=== PATIENT | male | born 1955 | race Caucasian/White ===

== ENCOUNTER 2016-10-21 08:23 | Day surgery (SDC) | payer OTHER ==
[2016-10-16 09:49] VITALS: BMI 31.0
[2016-10-21] MEDS: LACTATED RINGERS 1,000 ML IV SCH (09:24)
[2016-10-21] MEDS: LIDOCAINE 1% 20 ML VIAL (10MG/ML) FOR IV START INTRADERMA ONE (09:24)
[2016-10-21 09:30] VITALS: RESP 16; TEMP 98.3
[2016-10-21 09:30] LABS: Glucose,Whole Blood 185 mg/dL (75-99)
[2016-10-21] MEDS ORDERED: BUPIVACAINE (PF) 0.25% 30 ML VIAL ONE (09:34)
[2016-10-21] MEDS ORDERED: fentaNYL (PF) 50 MCG/ML 2 ML AMP ONE (09:34)
[2016-10-21] MEDS ORDERED: MIDAZOLAM 2 MG/2 ML VIAL ONE (09:34)
--- NOTE | 2016-10-21 10:21 | P.PCN ---
Date of Procedure: 10/21/16 Procedure(s) Performed: PREOPERATIVE DIAGNOSIS: 1-Cervical Spondylosis with Facet Arthropathy.without myelopathy 2-cervical degenerative disc disease POSTOPERATIVE DIAGNOSIS:1- Cervical Spondylosis Facet Arthropathy. Without myelopathy, 2-cervical degenerative disc disease PROCEDURES: Diagnostic Bilateral C3, C4 , C5, medial branch blocks, with fluoroscopic guidance ANESTHESIA: Local with 1% lidocaine 6 ml ; IV sedation with Versed 3 mg and fentanyl 100 g EBL: Minimal PROCEDURE INDICATION: The patient with neck pain secondary to cervical arthropathy unresponsive to more conservative treatments. PROCEDURE DESCRIPTION / TECHNIQUE: The patient was seen and identified in the preoperative area. Risks, benefits, complications, and alternatives were discussed with the patient, the patient agreed to proceed with the procedure and signed the consent. IV was started. Vital signs remained stable throughout the procedure. Patient was taken to the OR and time out was completed. The patient was placed in the prone position on the procedure table. A pillow was placed under the patients chest to increase the cervical interlaminar space. The cervical area was prepped and draped in the usual sterile fashion. Critical pause was taken. Vital signs were closely monitored during the procedure. Conscious sedation was used during the procedure to decrease patients anxiety. Then retry to visualize the cervical vertebral and I was able to see only C2 on C3 of Dr. Fernandez for this reason patient was turned to supine position and the neck prepped again using chlorhexidine 3 Using cross-table lateral fluoroscopy, the centroid of the trapezoid of right C3 , C4 , C5 was identified, marked, and localized with 1% lidocaine 1 ml at each level for skin and Sub Q infiltrations . Subsequently, a 22 G 3 spinal needle was advanced guided by fluoroscopy to the centroid of the trapezoid of Right C3, C4 , C5, . [place] tip position was confirmed at the centroid of the trapezoids of Right C3 , C4 , C5 with anteroposterior fluoroscopy. Subsequently, 1,5 ml of preservative-free Bupivacaine 0.75% and half ml was injected after negative aspiration for blood and CSF. [place] was then removed intact the same procedure was repeated at the left C3, C4, C5 levels. COMPLICATIONS: No acute complications. COMMENTS: The plan was to do bilateral C3/C4/C5/C6 medial branch block (4 levels ), but I couldn't visualize C6 levels , and I ended up doing only 3 levels bilaterally, no steroid used for the procedure DISPOSITION / PLANS: The patient was placed in a supine position and transferred to the recovery area in a stable condition for observation and was discharged from the recovery room after meeting discharge criteria. Home discharge instructions given to the patient by the staff. The patient was reexamined prior to discharge. The patient will schedule a follow up in the clinic in 2-4 weeks.
--- NOTE | 2016-10-21 10:25 | FL ---
FLUOROSCOPY 24 seconds of fluoroscopy time were utilized during facet injections. 3 images document the procedure .
[2016-10-21] MEDS: IV FLUID CONTINUATION 700 ML IV ONE (10:30)
[2016-10-21 10:35] VITALS: BP 128/78
[2016-10-21 11:21] VITALS: PULSE 66
== END 2016-10-21 11:22 | disposition home or self-care (01) ==
LOC: ORPAIN 08:23
PROVIDERS: ATTEND Specialist
DX: M46.82 Other specified inflammatory spondylopathies, cervical region (principal); M50.31 Other cervical disc degeneration, high cervical region; M50.321 Other cervical disc degeneration at C4-C5 level
CPT/HCPCS: 64490; 64491; 64492; J2250; J3010

== ENCOUNTER 2016-12-02 09:35 | Day surgery (SDC) | payer OTHER ==
[2016-12-02] MEDS ORDERED: LACTATED RINGERS 1,000 ML IV SCH ×2 (10:30→11:05)
[2016-12-02 10:36] VITALS: BMI 31.1
[2016-12-02 10:38] VITALS: RESP 16; TEMP 97.4
[2016-12-02] MEDS ORDERED: LIDOCAINE 1% 20 ML VIAL (10MG/ML) FOR IV START INTRADERMA ONE (10:47)
[2016-12-02 11:14] LABS: Glucose,Whole Blood 171 mg/dL (75-99)
[2016-12-02] MEDS ORDERED: BUPIVACAINE (PF) 0.5% 30 ML VIAL ONE (11:19)
[2016-12-02] MEDS ORDERED: MIDAZOLAM 2 MG/2 ML VIAL ONE (11:19)
[2016-12-02] MEDS ORDERED: fentaNYL (PF) 50 MCG/ML 2 ML AMP ONE (11:19)
--- NOTE | 2016-12-02 11:51 | P.PCN ---
Date of Procedure: 12/02/16 Preoperative Diagnosis: Cervical spondylosis without myelopathy Postoperative Diagnosis: Same as above Procedure(s) Performed: Bilateral cervical medial branch block under fluoroscopic guidance for levels see to 3, C4, and C5 Anesthesia: MAC Surgeon: Abigail Kaufman Condition: stable Disposition: PACU Description of Procedure: The patient was seen in preop holding area and the last medial branch block give him 2 weeks of pain relief that the patient Also Procedures. However he didn't get significant relief of his pain for 2 weeks. The patient was brought into the procedure room and placed in supine position. Skin was prepped with ChloraPrep and draped in a sterile manner. Lidocaine 1% was used to numb the skin up at the target points that were chosen as follows: The center of the trapezoid shaped cervical articular pillars of C3, C4, and C5 were identified and the lateral view of fluoroscopy then I used 22-gauge 3-1/2 inch Qu[place]ke spinal needles for this procedure to contact the bone at the target points mentioned above. I then injected 1 mL of Marcaine 0.5% at each target point. The right side was done first and then the left side was the same manner.. The patient received 2 mg of Versed IV and 100 g of fentanyl IV for sedation. No steroids were used for the procedure. Patient tolerated procedure well.
[2016-12-02 12:17] VITALS: BP 121/58; PULSE 62
[2016-12-02] MEDS ORDERED: IV FLUID CONTINUATION 1,000 ML IV ONE (12:24)
--- NOTE | 2016-12-02 12:27 | FL ---
EXAMINATION TYPE: FL guided pain mgmt statistic DATE OF EXAM: 12/02/2016 11:55 AM HISTORY: Flouroscopy time 13 seconds of fluoroscopy provided. IMPRESSION: 1. Fluoroscopy time.
== END 2016-12-02 12:36 | disposition home or self-care (01) ==
LOC: ORPAIN 09:35
PROVIDERS: ATTEND Anesthesiology
DX: M47.812 Spondylosis without myelopathy or radiculopathy, cervical region (principal); E11.9 Type 2 diabetes mellitus without complications; I25.10 Atherosclerotic heart disease of native coronary artery without angina pectoris
CPT/HCPCS: 64490; 64491; 64492; 99152; J2250; J3010

== ENCOUNTER → 2017-01-07 | Day surgery (SDC) | payer OTHER ==
[2017-01-06 10:33] VITALS: BMI 31.1
[~2017-01-07] MED LIST: BUPIVACAINE (PF) 0.5% 30 ML VIAL ONE; IV FLUID CONTINUATION 550 ML IV ONE; LACTATED RINGERS 1,000 ML IV SCH; LIDOCAINE 1% 20 ML VIAL (10MG/ML) FOR IV START INTRADERMA ONE; MIDAZOLAM 2 MG/2 ML VIAL ONE; TRIAMCINOLONE ACETONIDE 40 MG/ML 1 ML VIAL ONE; fentaNYL (PF) 50 MCG/ML 2 ML AMP ONE
[2017-01-07 08:43] VITALS: TEMP 97
[2017-01-07 08:46] LABS: Glucose,Whole Blood 165 mg/dL (75-99)
--- NOTE | 2017-01-07 11:00 | P.PCN ---
Date of Procedure: 01/07/17 Procedure(s) Performed: PREOPERATIVE DIAGNOSIS: Cervical spondylosis with Facet Arthropathy without myelopathy. POSTOPERATIVE DIAGNOSIS: Cervical spondylosis with Facet Arthropathy without myelopathy. PROCEDURES: Radiofrequency thermocoagulation, right C3, C4, C5, medial branch with Fluroscopy [place] ANESTHESIA: Local with 1% lidocaine 5 ml ; IV sedation with fentanyl 100 mcg and Versed.2 mg EBL: Minimal PROCEDURE INDICATION: The patient with neck pain secondary to cervical arthropathy who had more than 50% relief of her pain with previous diagnostic cervical medial branch block. PROCEDURE DESCRIPTION / TECHNIQUE: The patient was seen and identified in the preoperative area. Risks, benefits, complications, and alternatives were discussed with the patient, the patient agreed to proceed with the procedure and signed the consent. IV was started. Vital signs remained stable throughout the procedure. Patient was taken to the OR and time out was completed. The patient was placed in the prone position on the procedure table tried to visualize the cervical spine , and it was very poor view I was able to see only C2 and C3. only ,For this reason we put the patient on supine position. ,then. The cervical area was prepped and draped in the usual sterile fashion. Critical pause was taken. Vital signs were closely monitored during the procedure. Conscious sedation was used during the procedure to decrease patients anxiety. Using cross-table lateral fluoroscopy, the centroid of the trapezoid of right C3, C4, C5, were identified, marked, and localized with 1% lidocaine. Subsequently, a 20 [id number] radiofrequency cannula with a 10-mm active tip was advanced guided by fluoroscopy to the centroid of the trapezoid of right C3 , C4, C5, . Needle tip position was confirmed at the centroid of the trapezoids of C3, C4, C5,with anteroposterior fluoroscopy. Each site then underwent sensory testing at 50 Hz and 0 to 1 volt and motor testing at 2 Hz and 0 to 3 volt with local stimulation, but no radicular symptoms down the arm. Thereafter the right C3, C4, C5 sites underwent radiofrequency thermocoagulation at 80 degrees celsius for 90 seconds after injecting 0.5 ml of PF lidocaine 1%. After thermocoagulation, 1 ml of the block solution containing Kenalog 40 mg and 3 mL of preservative-free normal saline was injected at the right C3, C4, C5, levels after negative aspiration of CSF and blood and with no paresthesias. Cannulas were retracted while injecting lidocaine 1% until the needle is out. Skin was cleansed and bandages were applied. COMPLICATIONS: No acute complications. COMMENTS: DISPOSITION / PLANS: The patient was placed in a supine position and transferred to the recovery area in a stable condition for observation and was discharged from the recovery room after meeting discharge criteria. Home discharge instructions given to the patient by the staff. The patient was reexamined prior to discharge. The patient will schedule a follow up in the clinic in 2-4 weeks.
--- NOTE | 2017-01-07 11:07 | FL ---
Fluoroscopy INDICATION: Pain FINDINGS: Fluoroscopy time: 1 minute 45 seconds. Images obtained: 2. IMPRESSIONS: 1. Documentation of fluoroscopy.
[2017-01-07 11:15] VITALS: RESP 18
[2017-01-07 11:33] VITALS: BP 133/76; PULSE 70
== END ==
LOC: ORPAIN 08:26
PROVIDERS: ATTEND Specialist
DX: M47.812 Spondylosis without myelopathy or radiculopathy, cervical region (principal); M46.92 Unspecified inflammatory spondylopathy, cervical region
CPT/HCPCS: 64633; 64634 ×2; 99152; 99153 ×3; J2250; J3301; J3010

== ENCOUNTER 2017-02-24 07:24 | Day surgery (SDC) | payer OTHER ==
[2017-02-23 09:46] VITALS: BMI 31.9
[~2017-02-24 07:24] MED LIST changes: -BUPIVACAINE (PF) 0.5% 30 ML VIAL ONE; -IV FLUID CONTINUATION 550 ML IV ONE; -LIDOCAINE 1% 20 ML VIAL (10MG/ML) FOR IV START INTRADERMA ONE; -MIDAZOLAM 2 MG/2 ML VIAL ONE; -TRIAMCINOLONE ACETONIDE 40 MG/ML 1 ML VIAL ONE; -fentaNYL (PF) 50 MCG/ML 2 ML AMP ONE
[2017-02-24 07:47] VITALS: TEMP 98.2
[2017-02-24] MEDS ORDERED: LIDOCAINE 1% 20 ML VIAL (10MG/ML) FOR IV START SQ ONE (07:52)
[2017-02-24 07:53] LABS: Glucose,Whole Blood 184 mg/dL (75-99)
[2017-02-24] MEDS ORDERED: MIDAZOLAM 2 MG/2 ML VIAL ONE (07:56)
[2017-02-24] MEDS ORDERED: DEXAMETHASONE SOD PHOS (MDV) 100 MG/10 ML VIAL ONE (07:56)
[2017-02-24] MEDS ORDERED: BUPIVACAINE (PF) 0.5% 30 ML VIAL ONE (07:56)
[2017-02-24] MEDS ORDERED: fentaNYL (PF) 50 MCG/ML 2 ML AMP ONE (07:56)
--- NOTE | 2017-02-24 09:00 | P.PCN ---
Date of Procedure: 02/24/17 Preoperative Diagnosis: Postoperative Diagnosis: Procedure(s) Performed: PREOPERATIVE DIAGNOSIS: Cervical spondylosis with Facet Arthropathy without myelopathy. POSTOPERATIVE DIAGNOSIS: Cervical spondylosis with Facet Arthropathy without myelopathy. PROCEDURES: Radiofrequency thermocoagulation, left C3, C4, C5, medial branch with Fluroscopy [place] ( Three levels) ANESTHESIA: Local with 1% lidocaine 3 ml ; IV sedation with fentanyl 100 mcg and Versed. 2 mg EBL: Minimal PROCEDURE INDICATION: The patient with neck pain secondary to cervical arthropathy who had more than 50% relief of her pain with previous diagnostic cervical medial branch block. PROCEDURE DESCRIPTION / TECHNIQUE: The patient was seen and identified in the preoperative area. Risks, benefits, complications, and alternatives were discussed with the patient, the patient agreed to proceed with the procedure and signed the consent. IV was started. Vital signs remained stable throughout the procedure. Patient was taken to the OR and time out was completed. The patient was placed in the supine position on the procedure table. The cervical area was prepped and draped in the usual sterile fashion. Critical pause was taken. Vital signs were closely monitored during the procedure. Conscious sedation was used during the procedure to decrease patients anxiety. Using cross-table lateral fluoroscopy, the centroid of the trapezoid of left C3 , C4, C5, were identified, marked, and localized with 1% lidocaine. Subsequently, a 20 [id number] radiofrequency cannula with a 10-mm active tip was advanced guided by fluoroscopy to the centroid of the trapezoid of left C3 , C4, C5, . Needle tip position was confirmed at the centroid of the trapezoids of Left C3, C4, C5 with anteroposterior fluoroscopy. Each site then underwent sensory testing at 50 Hz and 0 to 1 volt and motor testing at 2 Hz and 0 to 3 volt with local stimulation, but no radicular symptoms down the arm. Thereafter the Left C3, C4, O0yezgs underwent radiofrequency thermocoagulation at 80 degrees celsius for 90 seconds after injecting 0.5 ml of PF lidocaine 1%. After thermocoagulation, 1 ml of the block solution containing Dexamethason 10 mg , and 3 mL of preservative-free normal saline was injected at the left C3, C4, C5, levels after negative aspiration of CSF and blood and with no paresthesias. Cannulas were retracted while injecting lidocaine 1% until the needle is out. Skin was cleansed and bandages were applied. COMPLICATIONS: No acute complications. COMMENTS: DISPOSITION / PLANS: The patient was placed in a supine position and transferred to the recovery area in a stable condition for observation and was discharged from the recovery room after meeting discharge criteria. Home discharge instructions given to the patient by the staff. The patient was reexamined prior to discharge. The patient will schedule a follow up in the clinic in 2-4 weeks. Implants: Indications for Procedure: Operative Findings: Description of Procedure:
--- NOTE | 2017-02-24 09:01 | FL ---
EXAMINATION TYPE: FL guided pain mgmt statistic DATE OF EXAM: 02/24/2017 HISTORY: Pain C3-[address] FOR PAIN. 27 SEC FL TIME. 2 IMAGES SCANNED
[2017-02-24] MEDS ORDERED: IV FLUID CONTINUATION 1,000 ML IV ONE (09:05)
[2017-02-24 09:08] VITALS: BP 151/93; PULSE 67; RESP 18
== END 2017-02-24 09:36 | disposition home or self-care (01) ==
LOC: ORPAIN 07:24
PROVIDERS: ATTEND Specialist
DX: M47.812 Spondylosis without myelopathy or radiculopathy, cervical region (principal); M46.92 Unspecified inflammatory spondylopathy, cervical region; E11.9 Type 2 diabetes mellitus without complications
CPT/HCPCS: 64633; 64634 ×2; 99152; 99153 ×2; J2250; J3010; J1100

== ENCOUNTER → 2017-03-30 | Outpatient (CLI) | payer OTHER ==
[2017-03-30 12:15] VITALS: BP 147/81; PULSE 68; RESP 18; TEMP 98.5
--- NOTE | 2017-03-30 12:30 | P.PN ---
Progress Note - Text Patient returns for followup for chronic neck pain with mild radiation to shoulders. Patient recently underwent bilateral cervical RFA, which has provided relief for interval since procedure. Patient continues on [place]/ Neurontin medications for pain with good relief and is now only using 1-2 [place] pills per day. Patient denies adverse drug effects from medications. Today, pt denies new-onset weakness, bowel/bladder incontinence, or any other signs or symptoms of cauda equina syndrome. There are no signs of acute intoxication, and no indications of medication diversion or overuse. In addition to above, 13-point review of systems is also negative for chest pain , shortness of breath, changes in vision, changes in hearing, new onset weakness , abdominal pain, diarrhea, extreme fatigue, malaise, fever, skin changes, homicidal or suicidal ideation, or bowel or bladder incontinence. Vital Signs: Reviewed in EMR Gen: WDWN, AAOx3, NAD HEENT: NCAT, EOMI, hearing grossly normal Pulm: resp unlabored Abd: soft, NT, ND Neck: supple, trachea midline ROM in flexion cervical spine: reduced ROM in extension cervical spine: reduced Cervical paravertebral tenderness: + Cervical Facet tenderness: + bilateral, mild Spurling's: neg Upper extremity: decreased body coverer strength secondary to pain Neuro: CN II-XII grossly intact, muscle strength lower extremities PRESERVED Imaging: Reviewed in EMR Assessment: 1. cervical spondylosis without myelopathy 2. chronic pain syndrome 3. myofascial pain Plan: 1. Explanation: Opioid and psychological risk scores were reviewed. Diagnoses , prognoses, and multiple treatment options including but not limited to physical therapy, interventional therapies, adjuvant medical therapies, narcotic medication therapies, and surgery were discussed with the patient and all questions were answered to the patient's satisfaction. 2. Opioid agreement: Patient has previously signed narcotic agreement, and was orally counseled to not overuse, abuse, divert, or cell medications, and to take them as prescribed by only 1 healthcare provider. The patient was also counseled to store opioid medications in a safe and preferably locked location. Patient was also counseled against driving or operating heavy equipment while using narcotic medications and also to not use alcohol or any illicit or recreational drugs. The patient verbalized understanding that lack of compliance with any of the above and likely result in failure to renew narcotic prescriptions, possible discharge from the clinic, and possible legal ramifications thereafter if indicated. 3. Counseling: The patient was counseled extensively on SMOKING CESSATION, BODY MASS INDEX, EXERCISE. Specifically, the patient was instructed regarding the importance of smoking cessation, weight control, and exercise in the context of both chronic pain and overall health. 4. Procedures: none for now 5. Consultations: None 6. Investigations: None 7. Medications: decrease [place] to #45 per month (one script given for #90, which is supply for two months), continue Neurontin 400 mg #90 with two refills , start Zanaflex 4 mg #90 with two refills 8. Disposition: f/u for re-eval in 8 weeks PQRS measures: 1-Patient's medications are documented in the chart. 2-Tobacco use is negative 3-Patient has not had a pneumococcal vaccine. 4-Advanced care planning discussed, patient unable to give. 5-Opioid contract signed with the patient. 6-Pain positive, follow-up visit or procedure scheduled 7-Patient's blood pressure measured and documented, and patient will follow up with the primary care due to hypertension. 8-Patient's weight was measured, and body mass index ABOVE the normal limits, and counseling was done. Patient instructed to follow up with PCP. 9-Patient WAS NOT identified as an unhealthy alcohol user.
== END | disposition home or self-care (01) ==
LOC: PNWHC3 11:51
PROVIDERS: ATTEND Anesthesiology
DX: M47.812 Spondylosis without myelopathy or radiculopathy, cervical region (principal); G89.4 Chronic pain syndrome; M79.1 Myalgia; Z79.891 Long term (current) use of opiate analgesic
CPT/HCPCS: G0480; G0463; 80307; 80356; 80364; 99211

== ENCOUNTER → 2017-05-25 | Outpatient (CLI) | payer OTHER ==
[2017-05-25 12:45] VITALS: BP 158/73; PULSE 64; RESP 16
--- NOTE | 2017-05-25 13:05 | P.PN ---
Progress Note - Text This is a 62-year-old male with cervical spondylosis without myelopathy. The patient had cervical medial branch RFA recently which resulted in significant pain relief. The patient is not taking his [place] as frequently as he used to. He is alert oriented 3 in no apparent distress. Today I will reduce the number of Reading from 3 to2 pills a day if needed for his pain and we'll continue with his Neurontin and Zanaflex. The patient will be seen 2 months from now for reevaluation.
== END ==
LOC: PNWHC3 11:58
PROVIDERS: ATTEND Anesthesiology
DX: M47.812 Spondylosis without myelopathy or radiculopathy, cervical region (principal); Z79.899 Other long term (current) drug therapy
CPT/HCPCS: 99211

== ENCOUNTER → 2017-09-07 | Outpatient (CLI) | payer OTHER ==
[2017-09-07 13:12] VITALS: BP 170/68; PULSE 94; RESP 16
--- NOTE | 2017-09-07 13:28 | P.PN ---
Progress Note - Text Progress Note Date: 09/07/17 A 62-year-old male with lower back pain due to lumbar spondylosis pain with cervical spondylosis status post branch block that has helped his pain significantly. The patient takes 2 pills of [place] 7.5 mg as needed every day plus Zanaflex and Neurontin. He denies any side effects to these medications. He does not show any drug-seeking behavior. Physical Examinations : 1-Constitutiona : Cooperative , not in acute distress . 2-HEENT : nech ; supple , no Lymphadenopathy , normal thyroid size . eyes : no ptosis , no icterus, no photophobia . ENT : normal of hearing , normal oropharynx , no Thrush . 3- Respiratory : Chest clear to auscultations Bilaterally , no wheezing , no Rhonchi . 4- Cardiovascular : regular rate and rhythem , S1 , S2 , no S3 , no S4. 5- Gastrointestinal : abdomen soft no tenderness , bowel sounds positive all four quadrents , no organomegally . 6- Genitourinary : Defferred . 7- neurologic : Cranial nerve II to XII intact , no focal neurological deffecit . 8-psychatric : alert , oriented X 3 , appropriate affect , intact judgment and insight . 9-Lymphatic : no Lymphadenopathy . 10- musculoskeltal : PQRS measures: 1-Patient's medications are documented in the chart. 2-Tobacco use is negative, counseling given 3-Patient has had a pneumococcal vaccine. 4-Advanced care planning discussed, patient unable to give 5-Opioid contract signed with the patient. 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 8-Patient's weight was measured, and body mass index ABOVE the normal limits, and counseling was done. Patient instructed to follow up with PCP. 9-Patient WAS NOT identified as an unhealthy alcohol user. Plan: The patient is doing well point. I'll prescribe him [place] 7.5 mg twice a day as needed for his pain with 1 refill also Neurontin and Zanaflex. We will see the patient back 2 months from now. 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
== END ==
LOC: PNWHC3 12:52
PROVIDERS: ATTEND Anesthesiology
DX: M47.816 Spondylosis without myelopathy or radiculopathy, lumbar region (principal); M47.812 Spondylosis without myelopathy or radiculopathy, cervical region; Z79.899 Other long term (current) drug therapy
CPT/HCPCS: 99211

== ENCOUNTER → 2017-11-02 | Outpatient (CLI) | payer OTHER ==
[2017-11-02 11:27] VITALS: BP 150/97; PULSE 82; RESP 18; TEMP 97.8
--- NOTE | 2017-11-02 11:39 | P.PN ---
Progress Note - Text Progress Note Date: 11/02/17 Patient returns for followup for chronic neck pain with mild radiation to shoulders. Patient previously underwent bilateral cervical RFA last summer, which has provided relief for interval since procedure. Patient continues on [place]/Neurontin/Zanaflex medications for pain with good relief and is now using 1-2 [place] pills per day typically. Patient denies adverse drug effects from medications. Today, pt denies new-onset weakness, bowel/bladder incontinence, or any other signs or symptoms of cauda equina syndrome. There are no signs of acute intoxication, and no indications of medication diversion or overuse. In addition to above, 13-point review of systems is also negative for chest pain , shortness of breath, changes in vision, changes in hearing, new onset weakness , abdominal pain, diarrhea, extreme fatigue, malaise, fever, skin changes, homicidal or suicidal ideation, or bowel or bladder incontinence. Vital Signs: Reviewed in EMR Gen: WDWN, AAOx3, NAD HEENT: NCAT, EOMI, hearing grossly normal Pulm: resp unlabored Abd: soft, NT, ND Neck: supple, trachea midline ROM in flexion cervical spine: reduced ROM in extension cervical spine: reduced Cervical paravertebral tenderness: + Cervical facet tenderness: + bilateral, R > L Spurling's: neg Upper extremity: decreased ic designer custom strength secondary to pain Neuro: CN II-XII grossly intact, muscle strength lower extremities PRESERVED Imaging: Reviewed in EMR Assessment: 1. cervical spondylosis without myelopathy 2. chronic pain syndrome 3. myofascial pain Plan: 1. Explanation: Opioid and psychological risk scores were reviewed. Diagnoses , prognoses, and multiple treatment options including but not limited to physical therapy, interventional therapies, adjuvant medical therapies, narcotic medication therapies, and surgery were discussed with the patient and all questions were answered to the patient's satisfaction. 2. Opioid agreement: Patient has previously signed narcotic agreement, and was orally counseled to not overuse, abuse, divert, or cell medications, and to take them as prescribed by only 1 healthcare provider. The patient was also counseled to store opioid medications in a safe and preferably locked location. Patient was also counseled against driving or operating heavy equipment while using narcotic medications and also to not use alcohol or any illicit or recreational drugs. The patient verbalized understanding that lack of compliance with any of the above and likely result in failure to renew narcotic prescriptions, possible discharge from the clinic, and possible legal ramifications thereafter if indicated. 3. Counseling: The patient was counseled extensively on BODY MASS INDEX, EXERCISE. Specifically, the patient was instructed regarding the importance of weight control, and exercise in the context of both chronic pain and overall health. 4. Procedures: none for now 5. Consultations: None 6. Investigations: None 7. Medications: Decrease [place] 7.5/325 to #45 per month with one refill, continue Neurontin 400 mg #90 with two refills, continue Zanaflex 4 mg #90 with two refills 8. Disposition: f/u for re-eval in 8 weeks; patient does not want to repeat cervical RFA at this time as his pain does not occur every day and he is still able to work. PQRS measures: 1-Patient's medications are documented in the chart. 2-Tobacco use is negative 3-Patient has not had a pneumococcal vaccine. 4-Advanced care planning discussed, patient unable to give. 5-Opioid contract signed with the patient. 6-Pain positive, follow-up visit or procedure scheduled 7-Patient's blood pressure measured and documented, and patient will follow up with the primary care due to hypertension. 8-Patient's weight was measured, and body mass index ABOVE the normal limits, and counseling was done. Patient instructed to follow up with PCP. 9-Patient WAS NOT identified as an unhealthy alcohol user.
== END | disposition home or self-care (01) ==
LOC: PNWHC3 10:58
PROVIDERS: ATTEND Anesthesiology
DX: G89.4 Chronic pain syndrome (principal); M47.812 Spondylosis without myelopathy or radiculopathy, cervical region; M79.1 Myalgia; Z79.891 Long term (current) use of opiate analgesic; Z79.899 Other long term (current) drug therapy
CPT/HCPCS: 99211

== ENCOUNTER → 2017-12-28 | Outpatient (CLI) | payer OTHER ==
[2017-12-28 12:45] VITALS: BP 157/88; PULSE 88; RESP 22
--- NOTE | 2017-12-28 13:09 | P.PN ---
Progress Note - Text Progress Note Date: 12/28/17 Patient returns for followup for chronic neck pain with mild radiation to shoulders. Patient previously underwent bilateral cervical RFA last summer, which has provided relief for interval since procedure but right sided neck pain has begun to return. Patient continues on Almond/Neurontin/Zanaflex medications for pain with good relief and is now using 1-2 Almond pills per day typically. Patient denies adverse drug effects from medications. Today, pt denies new-onset weakness, bowel/bladder incontinence, or any other signs or symptoms of cauda equina syndrome. There are no signs of acute intoxication, and no indications of medication diversion or overuse. In addition to above, 13-point review of systems is also negative for chest pain , shortness of breath, changes in vision, changes in hearing, new onset weakness , abdominal pain, diarrhea, extreme fatigue, malaise, fever, skin changes, homicidal or suicidal ideation, or bowel or bladder incontinence. 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 cervical spondylosis without myelopathy 2. chronic pain syndrome 3. myofascial pain Plan: 1. Explanation: Opioid and psychological risk scores were reviewed. Diagnoses , prognoses, and multiple treatment options including but not limited to physical therapy, interventional therapies, adjuvant medical therapies, narcotic medication therapies, and surgery were discussed with the patient and all questions were answered to the patient's satisfaction. 2. Opioid agreement: Patient has previously signed narcotic agreement, and was orally counseled to not overuse, abuse, divert, or cell medications, and to take them as prescribed by only 1 healthcare provider. The patient was also counseled to store opioid medications in a safe and preferably locked location. Patient was also counseled against driving or operating heavy equipment while using narcotic medications and also to not use alcohol or any illicit or recreational drugs. The patient verbalized understanding that lack of compliance with any of the above and likely result in failure to renew narcotic prescriptions, possible discharge from the clinic, and possible legal ramifications thereafter if indicated. 3. Counseling: The patient was counseled extensively on BODY MASS INDEX, EXERCISE. Specifically, the patient was instructed regarding the importance of weight control, and exercise in the context of both chronic pain and overall health. 4. Procedures: R cervical RFA, then L cervical RFA 5. Consultations: None 6. Investigations: None 7. Medications: Almond 7.5/325 #45 per month with one refill, continue Neurontin 400 mg #90 with two refills, continue Zanaflex 4 mg #90 with two refills 8. Disposition: f/u for procedure as scheduled PQRS measures: 1-Patient's medications are documented in the chart. 2-Tobacco use is negative 3-Patient has not had a pneumococcal vaccine. 4-Advanced care planning discussed, patient unable to give. 5-Opioid contract signed with the patient. 6-Pain positive, follow-up visit or procedure scheduled 7-Patient's blood pressure measured and documented, and patient will follow up with the primary care due to hypertension. 8-Patient's weight was measured, and body mass index ABOVE the normal limits, and counseling was done. Patient instructed to follow up with PCP. 9-Patient WAS NOT identified as an unhealthy alcohol user.
== END ==
LOC: PNWHC3 12:14
PROVIDERS: ATTEND Anesthesiology
DX: G89.4 Chronic pain syndrome (principal); M47.812 Spondylosis without myelopathy or radiculopathy, cervical region; M79.1 Myalgia; Z79.891 Long term (current) use of opiate analgesic; Z79.899 Other long term (current) drug therapy
CPT/HCPCS: 80307; 80356; 99211

== ENCOUNTER 2018-02-22 08:00 | Day surgery (SDC) | payer OTHER ==
[2018-02-21 11:21] VITALS: BMI 30.4
[2018-02-22] MEDS ORDERED: LACTATED RINGERS 1,000 ML IV SCH (08:30)
[2018-02-22 09:09] VITALS: RESP 18; TEMP 98.2
[2018-02-22 09:15] LABS: Glucose,Whole Blood 200 mg/dL (75-99)
[2018-02-22] MEDS ORDERED: IV FLUID CONTINUATION 1,000 ML IV ONE (10:17)
--- NOTE | 2018-02-22 10:34 | P.PCN ---
Date of Procedure: 02/22/18 Surgeon: Eliazar Harris Pathology: none sent Condition: stable Disposition: PACU Description of Procedure: PREOPERATIVE DIAGNOSIS: Cervical spondylosis without myelopathy and facet arthropathy. POSTOPERATIVE DIAGNOSIS: Cervical spondylosis without myelopathy and facet arthropathy. PROCEDURES: Radiofrequency thermocoagulation, C3-C4, C4-C5, C5-C6 medial branch , with fluoroscopic guidance, right side. ANESTHESIA: Local with 1% lidocaine; conscious sedation EBL: Minimal PROCEDURE INDICATION: The patient with neck pain secondary to cervical arthropathy who had more than 50% relief of pain with previous diagnostic cervical medial branch blocks and cervical RFA. No use of blood thinners. PROCEDURE DESCRIPTION / TECHNIQUE: The patient was seen and identified in the preoperative area. Risks, benefits, complications, and alternatives were discussed with the patient (with risks including but not limited to bleeding, infection, nerve damage, incomplete pain relief, and allergic reactions to medications), the patient agreed to proceed with the procedure and signed the informed consent after all questions were answered. IV was started. Vital signs remained stable throughout the procedure. Patient was taken to the OR and time out was completed to verify proper patient , procedure, laterality of procedure, and allergies. The patient was placed in the prone position on the procedure table. A pillow was placed under the patient s chest to increase the cervical interlaminar space. The cervical area was prepped and draped in the usual sterile fashion. Critical pause was taken. Vital signs were closely monitored during the procedure. Conscious sedation was used during the procedure to decrease patients anxiety. Using cross-table lateral fluoroscopy, the centroid of the trapezoid of C3, C4, C5, C6, and C7 were identified, marked, and localized with 1% lidocaine. Subsequently, a 21 gauge 100-mm radiofrequency cannula with a 5-mm active tip was advanced guided by fluoroscopy to the centroid of the trapezoids of C3, C4, and C5. Needle tip position was confirmed at the centroid of the trapezoids of C3, C4, and C5 with anteroposterior fluoroscopy. Each site then underwent sensory testing at 50 Hz and 0 to 1 volt and motor testing at 2 Hz and 0 to 3 volt with local stimulation, but no radicular symptoms down the arm. Thereafter C3, C4, and C5 sites underwent radiofrequency thermocoagulation at 80 degrees celsius for 90 seconds after injecting 0.5 ml of PF lidocaine 1%. After thermocoagulation, 1 ml of the block solution containing NO STEROID (blood sugar 200 preop) and 2 ml lidocaine 1% PF was injected at the C3, C4, and C5 levels after negative aspiration of CSF and blood and with no paresthesias. Cannulas were retracted while injecting lidocaine 1% until the needle is out. Skin was cleansed and bandages were applied. COMPLICATIONS: No acute complications. COMMENTS: DISPOSITION / PLANS: The patient was placed in a supine position and transferred to the recovery area in a stable condition for observation and was discharged from the recovery room after meeting discharge criteria. Home discharge instructions given to the patient by the staff. The patient was reexamined prior to discharge. The patient will schedule a follow up in the clinic in 2-4 weeks as bilateral RFA completed. MAPS reviewed and appropriate; [place] 7.5/325 #45 script given to patient.
--- NOTE | 2018-02-22 10:46 | FL ---
Fluoroscopy HISTORY: Pain 20 seconds fluoroscopy time supplied to the referring clinician. 3 intraoperative C-arm images docum ent the procedure. See dictated report from anesthesia.
[2018-02-22 10:47] VITALS: BP 189/99; PULSE 74
== END 2018-02-22 11:06 | disposition home or self-care (01) ==
LOC: ORPAIN 08:00
PROVIDERS: ATTEND Anesthesiology
DX: M47.812 Spondylosis without myelopathy or radiculopathy, cervical region (principal); E11.9 Type 2 diabetes mellitus without complications; I10 Essential (primary) hypertension; E78.5 Hyperlipidemia, unspecified
CPT/HCPCS: 64633; 64634 ×2; J2250; J3010; 99152

== ENCOUNTER 2018-03-10 07:24 | Day surgery (SDC) | payer OTHER ==
[2018-03-10 08:40] VITALS: RESP 16; TEMP 97.9
[2018-03-10] MEDS ORDERED: LACTATED RINGERS 1,000 ML IV ONE (08:53)
[2018-03-10] MEDS ORDERED: LIDOCAINE 1% 20 ML VIAL (10MG/ML) FOR IV START INTRADERMA ONE (08:54)
[2018-03-10 08:58] LABS: Glucose,Whole Blood 203 mg/dL (75-99)
--- NOTE | 2018-03-10 09:49 | P.PCN ---
Date of Procedure: 03/10/18 Procedure(s) Performed: PREOPERATIVE DIAGNOSIS: Cervical spondylosis with Facet Arthropathy without myelopathy. POSTOPERATIVE DIAGNOSIS: Cervical spondylosis with Facet Arthropathy without myelopathy. PROCEDURES: Radiofrequency thermocoagulation Left C3-4 , C4-5 , C5-6 medial branch with Fluroscopy Guidence ( 3 Leveles ) ANESTHESIA: Local with 1% lidocaine 4 ml , moderate sedation with fentanyl 100 micrograms and Versed 2 mg EBL: Minimal PROCEDURE INDICATION: The patient with neck pain secondary to cervical arthropathy who had more than 50% relief of her pain with previous diagnostic cervical medial branch block. PROCEDURE DESCRIPTION / TECHNIQUE: The patient was seen and identified in the preoperative area. Risks, benefits, complications, and alternatives were discussed with the patient, the patient agreed to proceed with the procedure and signed the consent. IV was started. Vital signs remained stable throughout the procedure. Patient was taken to the OR and time out was completed. The patient was placed in the prone position on the procedure table. A pillow was placed under the patients chest to increase the cervical interlaminar space. The cervical area was prepped and draped in the usual sterile fashion. Critical pause was taken. Vital signs were closely monitored during the procedure. Conscious sedation was used during the procedure to decrease patients anxiety. Using cross-table lateral fluoroscopy, the centroid of the trapezoid of the left C3, C4, C5, were identified, marked, and localized with 1% lidocaine. Subsequently, a 20 [id number] radiofrequency cannula with a 10-mm active tip was advanced guided by fluoroscopy to the centroid of the trapezoid of left C3, C4, C5. Needle tip position was confirmed at the centroid of the trapezoids of the left C3, C4, C5 with anteroposterior fluoroscopy. Each site then underwent sensory testing at 50 Hz and 0 to 1 volt and motor testing at 2 Hz and 0 to 3 volt with local stimulation, but no radicular symptoms down the arm. Thereafter the left C3, C4,C5 sites underwent radiofrequency thermocoagulation at 80 degrees celsius for 90 seconds after injecting 0.5 ml of PF lidocaine 1%. After thermocoagulation, 1 ml of the block solution containing Kenalog 40 mg and 3 mL of preservative-free normal saline was injected at the C3, C4, C5, levels after negative aspiration of CSF and blood and with no paresthesias. Cannulas were retracted while injecting lidocaine 1% until the needle is out. Skin was cleansed and bandages were applied. COMPLICATIONS: No acute complications. DISPOSITION / PLANS: The patient was placed in a supine position and transferred to the recovery area in a stable condition for observation and was discharged from the recovery room after meeting discharge criteria. Home discharge instructions given to the patient by the staff. The patient was reexamined prior to discharge. The patient will schedule a follow up in the clinic in 2-4 weeks.
[2018-03-10] MEDS ORDERED: IV FLUID CONTINUATION 1,000 ML IV ONE (09:53)
--- NOTE | 2018-03-10 09:55 | FL ---
EXAMINATION TYPE: FL guided pain mgmt statistic DATE OF EXAM: 03/10/2018 HISTORY: Flouroscopy time 19 seconds of fluoroscopy provided. IMPRESSION: 1. Fluoroscopy time.
[2018-03-10 10:05] LABS: Glucose,Whole Blood 203 mg/dL (75-99)
[2018-03-10 10:11] VITALS: BP 173/91; PULSE 74
[2018-03-10] MEDS ORDERED: LACTATED RINGERS 1,000 ML IV SCH (10:34)
== END 2018-03-10 10:34 | disposition home or self-care (01) ==
LOC: ORPAIN 07:24
PROVIDERS: ATTEND Specialist
DX: M47.812 Spondylosis without myelopathy or radiculopathy, cervical region (principal)
CPT/HCPCS: 64633; 64634 ×2; J2250; J3301; J3010; 99152; 99153

== ENCOUNTER → 2018-04-04 | Outpatient (CLI) | payer OTHER ==
[2018-04-04 11:38] VITALS: BP 167/77; PULSE 71; RESP 16
--- NOTE | 2018-04-04 11:51 | P.PN ---
Progress Note - Text Progress Note Date: 04/04/18 A 62-year-old male with lower back pain due to lumbar spondylosis pain with cervical spondylosis status post branch block that has helped his pain significantly. The patient takes 2 pills of [place] 7.5 mg as needed every day plus Zanaflex and Neurontin. He denies any side effects to these medications. He does not show any drug-seeking behavior. Physical Examinations : 1-Constitutiona : Cooperative , not in acute distress . 2-HEENT : nech ; supple , no Lymphadenopathy , normal thyroid size . eyes : no ptosis , no icterus, no photophobia . ENT : normal of hearing , normal oropharynx , no Thrush . 3- Respiratory : Chest clear to auscultations Bilaterally , no wheezing , no Rhonchi . 4- Cardiovascular : regular rate and rhythem , S1 , S2 , no S3 , no S4. 5- Gastrointestinal : abdomen soft no tenderness , bowel sounds positive all four quadrents , no organomegally . 6- Genitourinary : Defferred . 7- neurologic : Cranial nerve II to XII intact , no focal neurological deffecit . 8-psychatric : alert , oriented X 3 , appropriate affect , intact judgment and insight . 9-Lymphatic : no Lymphadenopathy . 10- musculoskeltal : PQRS measures: 1-Patient's medications are documented in the chart. 2-Tobacco use is negative, counseling given 3-Patient has had a pneumococcal vaccine. 4-Advanced care planning discussed, patient unable to give 5-Opioid contract signed with the patient. 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 8-Patient's weight was measured, and body mass index ABOVE the normal limits, and counseling was done. Patient instructed to follow up with PCP. 9-Patient WAS NOT identified as an unhealthy alcohol user. Plan: The patient is doing well point. I'll prescribe him [place] 7.5 mg twice a day as needed for his pain with 1 refill also Neurontin and Zanaflex. We will see the patient back 2 months from now.
== END | disposition home or self-care (01) ==
LOC: PNWHC3 11:08
PROVIDERS: ATTEND Anesthesiology
DX: M54.5 Low back pain (principal); M47.816 Spondylosis without myelopathy or radiculopathy, lumbar region; M47.812 Spondylosis without myelopathy or radiculopathy, cervical region; Z98.890 Other specified postprocedural states; Z79.891 Long term (current) use of opiate analgesic; Z79.899 Other long term (current) drug therapy
CPT/HCPCS: 99211

== ENCOUNTER → 2018-05-30 | Outpatient (CLI) | payer OTHER ==
[2018-05-30 12:09] VITALS: BP 194/92; PULSE 75; RESP 18
--- NOTE | 2018-05-30 12:48 | P.PN ---
Subjective Progress Note Date: 05/30/18 Principal diagnosis: This is a 63-year-old gentleman with history of bilateral shoulder pain due to osteoarthritis and myofascial pain. 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 His pain has been well-controlled with a combination of interventional pain procedures and opioids. He uses [place] 7.5 mg twice a day as needed for his pain. Today, pt denies new-onset weakness, bowel/bladder incontinence, or any other signs or symptoms of cauda equina syndrome. There are no signs of acute intoxication, and no indications of medication diversion or overuse. In addition to above, 13-point review of systems is also negative for chest pain , shortness of breath, changes in vision, changes in hearing, new onset weakness , abdominal pain, diarrhea, extreme fatigue, malaise, fever, skin changes, homicidal or suicidal ideation, or bowel or bladder incontinence. Vital Signs: Reviewed in EMR Gen: AAOx3, NAD HEENT: PERRLA,hearing grossly normal Pulm: resp unlabored,CTA Heart:S1,S2, No Mur Neck: supple, trachea midline Positive tenderness in the cervical paravertebral musculature and also around the shoulder joints posteriorly. He has normal range of motion of the shoulder joints and of the cervical spine with more pain with extension of the neck. Neuro exam of the upper extremities showed normal and symmetrical muscle strength and normal and symmetrical deep tendon reflexes Neuro: CN II-XII grossly intact, Imaging: Reviewed in EMR/chart Assessment: Myofascial pain Bilateral shoulder pain Plan: 1. Explanation: Opioid and psychological risk scores were reviewed. Diagnoses , prognoses, and multiple treatment options including but not limited to physical therapy, interventional therapies, adjuvant medical therapies, narcotic medication therapies, and surgery were discussed with the patient and all questions were answered to the patient's satisfaction. 2. Opioid agreement: Signed with the patient and the patient is warned not to use opioids while driving or before driving and not to combine opioids with benzodiazepines or alcohol. 3. Counseling: The patient was counseled extensively on SMOKING CESSATION, BODY MASS INDEX, EXERCISE. Specifically, the patient was instructed regarding the importance of smoking cessation, obesity, and exercise in the context of both chronic pain and overall health. 4. Procedures: None at this point 5. Consultations: None 6. Investigations: None 7. Medications: Continue [place] 7.5 mg twice a day, Neurontin 1200 mg and Zanaflex. 8. Disposition: Return to clinic in 8 weeks 9. Maps were reviewed and were appropriate. Objective - Vital Signs Vital signs: Vital Signs Temp Pulse 75 05/30/18 12:05 Resp 18 05/30/18 12:05 BP 194/92 05/30/18 12:05 Pulse Ox 96 05/30/18 12:05 Intake & Output 05/29/18 05/30/18 05/30/18 18:59 06:59 18:59 Weight 88.451 kg
== END | disposition home or self-care (01) ==
LOC: PNWHC3 11:35
PROVIDERS: ATTEND Anesthesiology
DX: M25.511 Pain in right shoulder (principal); M79.1 Myalgia; Z79.891 Long term (current) use of opiate analgesic; Z79.899 Other long term (current) drug therapy
CPT/HCPCS: 99211

== ENCOUNTER → 2018-07-25 | Outpatient (CLI) | payer OTHER ==
[2018-07-25 12:51] VITALS: BP 179/85; PULSE 76; RESP 16
--- NOTE | 2018-07-25 13:49 | P.PN ---
Subjective Progress Note Date: 07/25/18 Principal diagnosis: Cervical spondylosis Patric presents today for follow-up. He reports is doing well since radiofrequency ablation. He continues to have some pain over the left side of his neck into his left shoulder reports a significantly better since his radiofrequency ablation. He reports that he has pain with flexion and extension of his neck as well as side bending. He continues to work at this time. He continues to use Neurontin as well as Zanaflex with [place] as needed. He denies any side effects from medications. His VAS in today's visit is 5 out of 10 Objective - Vital Signs Vital signs: Vital Signs Temp Pulse 76 07/25/18 12:44 Resp 16 07/25/18 12:44 BP 179/85 07/25/18 12:44 Pulse Ox 97 07/25/18 12:44 Intake & Output 07/24/18 07/25/18 07/25/18 18:59 06:59 18:59 Weight 88.451 kg - Exam PHYSICAL EXAM: Constitutional: Awake and alert no distress Cardiovascular exam: Regular rate, no lower extremity edema, palpable pulses bilaterally Respiratory exam: No audible wheezing, no accessory muscle usage Abdominal exam: Soft nontender Muscular skeletal exam: - Cervical spine: Nontender to palpation bilaterally. Range of motion is limited with flexion and extension. Spurling is negative bilateral. Facet loading is positive bilaterally. Patient is missing bilateral thumbs - Lumbar spine: Preserved lumbar lordosis. No changes in skin. Nontender palpation bilateral. Patient has full range of motion in flexion and extension as well as lateral sidebending. Straight leg raise is negative. Facet loading is negative. Nontender over the SI joints. JUNIOR Negative, Gaenselons negative , SI Joint compression negative. Neuro exam: Normal sensation bilateral upper and lower extremities. Deep tendon reflexes are 2+ bilaterally. Szymanski's is negative Psychiatric exam: Cooperative, good insight Assessment and Plan Assessment: Lumbar spondylosis without myelopathy Opioid dependence Plan: I will refill the patient's medications for 2 months time. I refill his [place] as well as Zanaflex and Neurontin. Patient is maps was checked his urine drug screen has been evaluated and has been determined to be normal. We'll follow up with the patient 2 months time that time we'll determine if his neck pain is returned and will need a repeat radiofrequency ablation in the future Time with Patient: Less than 30
== END | disposition home or self-care (01) ==
LOC: PNWHC3 12:31
PROVIDERS: ATTEND Anesthesiology
DX: M47.816 Spondylosis without myelopathy or radiculopathy, lumbar region (principal); F11.20 Opioid dependence, uncomplicated; Z79.899 Other long term (current) drug therapy
CPT/HCPCS: 99211

== ENCOUNTER → 2018-09-21 | Outpatient (CLI) | payer OTHER ==
[2018-09-21 13:21] VITALS: RESP 16
[2018-09-21 13:23] VITALS: BP 168/89; PULSE 72
--- NOTE | 2018-09-21 13:44 | P.PN ---
Subjective Progress Note Date: 09/21/18 This is a 63-year-old gentleman with multiple painful areas including neck, left shoulder, lower back pain with radiation to the left lower extremity with occasional numbness and tingling. The patient had RFA on the medial portion of the cervical spine which didn't help his pain. His lower back pain has been getting worse lately with radiation to the left lower extremity to the mid calf area with occasional numbness and tingling in the left thigh. The patient denies any weakness in the lower extremities or any bowel or bladder dysfunction. He also denies any weight loss or any nocturnal pain. He uses [place] 7.5 mg twice a day as needed. Today, pt denies new-onset weakness, bowel/bladder incontinence, or any other signs or symptoms of cauda equina syndrome. There are no signs of acute intoxication, and no indications of medication diversion or overuse. In addition to above, 13-point review of systems is also negative for chest pain , shortness of breath, changes in vision, changes in hearing, new onset weakness , abdominal pain, diarrhea, extreme fatigue, malaise, fever, skin changes, homicidal or suicidal ideation, or bowel or bladder incontinence. Vital Signs: Reviewed in EMR Gen: AAOx3, NAD HEENT: PERRLA,hearing grossly normal Pulm: resp unlabored,CTA Heart:S1,S2, No Mur Neck: supple, trachea midline Neuro exam of the lower extremities: Within normal limits Straight leg raising test: Negative bilaterally Tenderness in the paravertebral musculature: Mildly positive on the lumbar paravertebral area bilaterally Neuro: CN II-XII grossly intact, Imaging: Reviewed in EMR/chart Assessment: Cervical spondylosis without myelopathy Left shoulder also arthritis Lumbar spondylosis and radiculopathy Left lumbar radiculopathy Plan: 1. Explanation: Opioid and psychological risk scores were reviewed. Diagnoses , prognoses, and multiple treatment options including but not limited to physical therapy, interventional therapies, adjuvant medical therapies, narcotic medication therapies, and surgery were discussed with the patient and all questions were answered to the patient's satisfaction. 2. Opioid agreement: Signed with the patient and the patient is warned not to use opioids while driving or before driving and not to combine opioids with benzodiazepines or alcohol. 3. Counseling: The patient was counseled extensively on SMOKING CESSATION, BODY MASS INDEX, EXERCISE. Specifically, the patient was instructed regarding the importance of smoking cessation, obesity, and exercise in the context of both chronic pain and overall health. 4. Procedures: None at this point 5. Consultations: None 6. Investigations: MRI of the lumbar spine without contrast 7. Medications: Continue with [place], Neurontin and Zanaflex 8. Disposition: Return to clinic in 4 weeks 9. Maps were reviewed and were appropriate. PQRS measures: 1-Patient's medications are documented in the chart. 2-Tobacco use is negative, counseling given 3-Patient has had a pneumococcal vaccine. 4-Advanced care planning discussed, patient unable to give 5-Opioid contract signed with the patient. 6-Pain positive, follow-up visit or procedure scheduled 7-Patient's blood pressure measured and documented in the hypertensive range and the patient is going to follow up with his primary care physician. 8-Patient's weight was measured, and body mass index ABOVE the normal limits, and counseling was done. Patient instructed to follow up with PCP. 9-Patient WAS NOT identified as an unhealthy alcohol user. Objective - Vital Signs Vital signs: Vital Signs Temp Pulse 72 09/21/18 13:10 Resp 16 09/21/18 13:10 BP 168/89 09/21/18 13:10 Pulse Ox Intake & Output 09/20/18 09/21/18 09/21/18 18:59 06:59 18:59 Weight 88.451 kg
== END ==
LOC: PNWHC3 12:51
PROVIDERS: ATTEND Anesthesiology
DX: M47.22 Other spondylosis with radiculopathy, cervical region (principal); M47.26 Other spondylosis with radiculopathy, lumbar region; M19.012 Primary osteoarthritis, left shoulder; Z79.899 Other long term (current) drug therapy
CPT/HCPCS: 99211

== ENCOUNTER → 2018-10-14 | Outpatient (CLI) | payer OTHER ==
--- NOTE | 2018-10-14 10:04 | MR ---
EXAMINATION TYPE: MR lumbar spine wo con DATE OF EXAM: 10/14/2018 COMPARISON: None HISTORY: Radiculopathy,lumbar region TECHNIQUE: Multiplanar, multisequence images of the lumbar spine were acquired. L1-L2: Small central posterior disc bulge causes slight anterior mass effect on the thecal sac. No ce ntral stenosis or foraminal encroachment. L2-L3: Posterior broad-based disc bulge causes mild anterior mass effect on the thecal sac. No signif icant central stenosis or foraminal encroachment. L3-L4: Posterior broad-based disc bulge causes mild anterior mass effect on the thecal sac. Facet art hropathy with hypertrophy of the ligamentum flavum causes some posterior lateral mass effect on the t hecal sac. No significant central stenosis or foraminal encroachment. L4-L5: Hypertrophic changes of the facets causes posterior lateral mass effect on the thecal sac, enc roaches on the lateral recesses, circumferential disc bulge contributes with the listhesis to cause s ome foraminal encroachment. Small central posterior disc bulge is present, there is moderate to sever e central canal stenosis. L5-S1: Posterior central disc bulge causes mild anterior mass effect on the thecal sac, possibly cont act the proximal S1 nerve roots. Lateral extension of endplate disc complex encroaches mildly on the neural foramen right greater than left. There are facet arthropathy changes. Lumbar segments are intact. No paraspinal masses are identified. Conus medullaris has a normal appe arance. Lumbar vertebral bodies show preserved height. Minimal retrolisthesis grade 1 L2-3, anterolis thesis grade 1 at L4-5. Multilevel spondylosis is present with endplate discogenic marrow signal altman ge. Some loss of disc height signal is present at L2-3. IMPRESSION: Degenerative disc disease and facet arthropathy as described. Spinal stenosis at L4-5. Correlate with plain film prior to any intervention.
== END | disposition home or self-care (01) ==
LOC: RADMRIMAIN 08:31
PROVIDERS: ATTEND Specialist
DX: M48.061 Spinal stenosis, lumbar region without neurogenic claudication (principal); M51.16 Intervertebral disc disorders with radiculopathy, lumbar region; M46.86 Other specified inflammatory spondylopathies, lumbar region
CPT/HCPCS: 72148

== ENCOUNTER → 2018-10-19 | Outpatient (CLI) | payer OTHER ==
[2018-10-19 11:54] VITALS: BP 150/81; PULSE 69; RESP 18; TEMP 98.7
--- NOTE | 2018-10-20 10:21 | P.PN ---
Subjective Progress Note Date: 10/19/18 This is a follow-up visit for this 64 years old male with a chronic history of severe neck pain and low back pain, done radiofrequency ablation of the medial branch cervical area , patient reported that his neck pain improved, and his complaining of low back pain recently with an MRI of the lumbar spine which showed patient had multilevel lumbar degenerative disc disease and lumbar spondylosis, patient currently on pain medication Turner 7.5/325 twice a day Zanaflex 4 mg 3 times a day and the Neurontin 400 mg every 8 hours, he denies any side effect of the medication he denies any excessive drowsiness or sleepiness, and he reported the current medication helping him to control his pain, 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 2-HEENT : nech ; supple , no Lymphadenopathy , normal thyroid size . eyes : no ptosis , no icterus, no photophobia . ENT : normal of hearing , normal oropharynx , no Thrush . 3- Respiratory : Chest clear to auscultations Bilaterally , no wheezing , no Rhonchi . 4- Cardiovascular : regular rate and rhythem , S1 , S2 , no S3 , no S4. 5- Gastrointestinal : abdomen soft no tenderness , bowel sounds , no organomegally . 6- Genitourinary : Defferred . 7- neurologic : Cranial nerve II to XII intact , no focal neurological deffecit . 8-psychatric : alert , oriented X 3 , appropriate affect , intact judgment and insight . 9-Lymphatic : no Lymphadenopathy . 10- musculoskeltal : Cervical Spine motor stregnth in the deltoid and biceps, normal right side , normal Left side motor stregnth biceps and the wrist extensors normal right side ,normal left side . motor stregnth in the triceps muscle . normal Right side , normal Left side deep tendon reflexes normal at the biceps , normal at Brachioradialis , normal at triceps. positive cervical facet loading test . Lumber spine moter stegnth lower extremities , thigh and legs 5/5 Right side , 5/5 Left side deep tendon reflexes : normal Knee Jerk , normal ankle Jerk positive lumber facet Loading Test Range of motion of the lumbar spine Flexion 30 degrees, extension 10 degrees strait leg raising test , positive at 60 degree Fabere test positive RT and positive LT . Assessment and Plan Plan: Assessment and plan= Chronic neck pain secondary to cervical spondylosis status post radiofrequency ablation of the medial branch cervical area chronic low back pain secondary to lumbar degenerative disc disease , lumbar spondylosis with lumbar facet arthropathy . chronic and current use of high-risk medication (opioids) Patient denies any side effects of the current pain medication and the current treatment/medication helping the patient to do activity of daily living , Diagnoses, prognosis, treatment options, including but not limited to physical therapy, medication management, interventional therapies, and surgery, were discussed with the patient All the questions answered The narcotic consent was signed and patient agreed and understood the side effects and complications of opioid treatment. Patient signed the narcotic agreement, and was orally counseled, not to overuse, not to abuse, not to Divert , not tp sell pain medication, and to take it as prescribed only, Patient was counseled not to drive or operate heavy equipment while using narcotic medication, and advised not to use alcohol or any Illicit drugs while using the narcotis. understanding that lack of compliance with any of the above instructions, will likely to cause discharge from, the pain service, not to renew his narcotic prescriptions MAPS Reviwed and it was apropriate . Medication managements= patient will be given prescription refills for Turner 7.5/325 every 4 hours dispense 60 with one refill, Zanaflex 4 mg every 8 hours dispense 90 with 1 refill on the Neurontin 400 mg every 8 hours dispense 90 with 1 refill She will follow up in the pain clinic for medication refill in 2 months. MAPS reviewed and it was appropriate, next visit we will do a urine drug screen. In the future patient can be scheduled to have diagnostic medial branch block lumbar area L3-4 /L4 5/5-S1 - PQRS measures = - Patient's medications are documented in the chart. -Tobacco use is negative and counseling.Given. -Patient's has not received pneumococcal vaccine. -Advanced care planning discussed, patient not eligible. -Opiate contract signed. -Pain positive and follow-up visit/procedure is scheduled. -Patient's blood pressure measured [ 150/81 ] , and documented in the record ,and patient will follow up with the primary care. -Patient's weight was measured and body mass index [ 29.6 ] above the normal limits and counseling was done. and patient instructed to follow-up with the primary care physician. -Patient was not identified as an unhealthy alcohol user , Time with Patient: Less than 30
== END ==
LOC: PNWHC3 11:39
PROVIDERS: ATTEND Specialist
DX: G89.29 Other chronic pain (principal); M51.36 Other intervertebral disc degeneration, lumbar region; M47.816 Spondylosis without myelopathy or radiculopathy, lumbar region; M47.812 Spondylosis without myelopathy or radiculopathy, cervical region; M46.96 Unspecified inflammatory spondylopathy, lumbar region; Z79.891 Long term (current) use of opiate analgesic; Z79.899 Other long term (current) drug therapy
CPT/HCPCS: 99211

== ENCOUNTER → 2019-09-26 | Outpatient (CLI) | payer OTHER ==
[2019-09-26 11:57] VITALS: BP 135/83; PULSE 77; RESP 18
--- NOTE | 2019-09-26 12:34 | P.PAINPG ---
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 -HEENT : nech : supple , no Lymphadenopathy , normal thyroid size - neurologic : Cranial nerve II to XII intact , no focal neurological deffecit . -psychatric : alert , oriented X 3 , appropriate affect , intact judgment and insight . -Lymphatic : no Lymphadenopathy . - musculoskeltal : Cervical Spine motor stregnth in the deltoid and bic eps, normal right side , normal Left side motor stregnth biceps and the wrist extensors normal right side ,normal left side . motor stregnth in the triceps muscle . normal Right side , normal Left side deep tendon reflexes normal at the biceps , normal at Brachioradialis , normal at natty Lumber spine moter stegnth lower extremities ,thigh and legs 5/5 Right side , 5/5 Left side deep tendon reflexes : normal Knee Jerk , normal ankle Jerk lumber facet Loading Test =positive Right , positive Left Range of motion of the lumbar spine Flexion 30 degrees, extension 10 degrees strait leg raising test = negative bilaterally Fabere test= negative bilaterally. MRI of the lumbar spine done in September 2018 showed multilevel lumbar degenerative disc disease and multilevel lumbar facet arthropathy Assessment and Plan Plan: Assessment and plan= low back pain secondary to lumbar spondylosis and lumbar facet arthropathy, and lumbar degenerative disc disease Patient will be good candidate to have diagnostic medial branch block lumbar area L2,L3, L4 ,L5 to target the facet joint at L3-4,L4-5 And L5-S1. Patient could benefit from Mobic 7.5 mg twice a day when necessary Time with Patient: Less than 30 PQRS Measure Charge Sheet Measure #130: Documentation of Current Meds in Medical Chart: Patient's medications documented in chart Measure #226: Tobacco Use: Screen & Cessation Intervention: Pt not a tobacco user Measure #111: Pneumonia Vaccination: Pneumococcal vaccine administered or previously received Measure #47: Advance Care Plan: Advance care planning discussed & documented, pt chose/unable to give Measure #412: Opioid Treatment Agreement: No documentation of signed opioid treatment agreement Measure #408: Opioid Therapy Follow-up Evaluation: Patient had NO f/u eval minimum every 3 months during opioid therapy Measure #317: Preventitive Care & Scrn High Bld Press & F/U: Normal blood pressure, f/u not required Measure #128: Body Mass Index (BMI) Screening & Follow-up: BMI documented ABOVE normal parameters - f/u documented Measure #131: Pain Assessment & Follow-up: Pain positive & plan documented, Follow-up scheduled Measure #431: Unhealthy Alcohol Use Preventative Care & Scrn: Patient not identified as an unhealthy alcohol user PQRS Narrative: Smoking Status Former smoker Narcotic Agreement Date Signed 09/26/19 Blood Pressure 135/83 Pain Intensity [Lower Back] 8 Pain Intensity [Back] 7 Pain Intensity [Bilateral Knee 5 ] Pain Intensity [Shoulder] 8 Scale Used Numeric (1 - 10) Hx Alcohol Use (MH) No: :as teen only" Home Medications: Ambulatory Orders Insulin Glargine [Lantus] 40 units SQ BID 08/25/16 amLODIPine BESYLATE [Norvasc] 10 mg PO DAILY 08/25/16 Aspirin 325 mg PO DAILY 02/21/18 Acetaminophen [Tylenol Extra Strength] 500 - 1,000 mg PO DIRECTED PRN 09/21/19 Atorvastatin [Lipitor] 20 mg PO DAILY 09/21/19 Carvedilol [Coreg] 6.25 mg PO BID 09/21/19 Insulin Lispro [Admelog] 7 unit SQ AC-BRKFST 09/21/19 Insulin Lispro [Admelog] 9 unit SQ AC-LUNCH 09/21/19 Insulin Lispro [Admelog] 14 unit SQ AC-SUPPER 09/21/19 Irbesartan [Avapro] 75 mg PO DAILY 09/21/19 Melatonin 5 - 10 mg PO HS PRN 09/21/19 Controlled Substance Measures - Controlled Substance Measures Is patient prescribed a controlled substance at discharge?: No
== END | disposition home or self-care (01) ==
LOC: PNWHC3 11:20
PROVIDERS: ATTEND Specialist
DX: G89.29 Other chronic pain (principal); M51.36 Other intervertebral disc degeneration, lumbar region; M47.816 Spondylosis without myelopathy or radiculopathy, lumbar region; M46.96 Unspecified inflammatory spondylopathy, lumbar region; M25.562 Pain in left knee; M19.90 Unspecified osteoarthritis, unspecified site; M54.2 Cervicalgia; Z87.891 Personal history of nicotine dependence; Z98.890 Other specified postprocedural states; Z79.4 Long term (current) use of insulin; Z79.82 Long term (current) use of aspirin; Z79.899 Other long term (current) drug therapy
CPT/HCPCS: 99211

== ENCOUNTER → 2019-10-17 | Day surgery (SDC) | payer OTHER ==
[2019-10-16 11:18] VITALS: BMI 27.3
[~2019-10-17] MED LIST changes: +INSULIN ASPART (NovoLOG) 100 UNIT/ML VIAL SQ ONE; +IOPAMIDOL M200 10 ML VIAL ONE; +IV FLUID CONTINUATION 1,000 ML IV ONE; +LIDOCAINE 1% 20 ML VIAL (10MG/ML) FOR IV START SQ ONE; +LIDOCAINE 4% (PF) 5 ML AMP ONE; +MIDAZOLAM 2 MG/2 ML VIAL ONE
[2019-10-17] MEDS: LACTATED RINGERS 1,000 ML IV SCH ×2 (08:08→08:43)
[2019-10-17 08:13] VITALS: TEMP 98.1
[2019-10-17 08:20] LABS: Glucose,Whole Blood 348 mg/dL (75-99)
[2019-10-17 09:18] LABS: Glucose,Whole Blood 323 mg/dL (75-99)
--- NOTE | 2019-10-17 09:30 | FL ---
EXAMINATION TYPE: FL guided pain mgmt statistic DATE OF EXAM: 10/17/2019 CLINICAL HISTORY: Low back pain. TECHNIQUE: Fluoroscopy. COMPARISON: None. FINDINGS: Fluoroscopic guidance was provided during pain relief procedure performed by Dr. Castellanos . A total of 4 seconds of fluoroscopic time was utilized during the procedure and 3 spot images are acqui red. Images acquired shows needle localization of the lumbosacral junction. IMPRESSION: As Above.
--- NOTE | 2019-10-17 09:38 | P.PCN ---
Date of Procedure: 10/17/19 Procedure(s) Performed: PREOPERATIVE DIAGNOSIS : Lumbar spondylosis with Facet Arthropathy without myelopathy POSTOPERATIVE DIAGNOSIS: same PROCEDURE: First Diagnostic lumbar medial branch block with fluoroscopy at L2, L3, L4, L5 [bilateral] which covers facets L3-4, L4-5 and L5-S1 ANESTHESIA: Local anesthetic; moderate IV sedation with Versed 2 mg, sedation time 17 minutes Fluoroscopy was used for the procedure and images were saved in the radiology portion of the chart. Surgeon: Ck Castellanos MD PROCEDURE INDICATION: Lumbar back pain without radiculopathy, not responsive to conservative management. PROCEDURE DESCRIPTION: the patient was seen and identified in the preop holding area , risks and benefits and possible complications of the procedure and alternatives were discussed with the patient, and the patient agreed to proceed with the procedure and signed the consent . IV was started , vital signs were monitored during the procedure and fluoroscopy was used to maximize the benefit and accuracy of the needle placement, and sedation was given to decrease patient anxiety. Patient was taken to the procedure room and placed in prone position. The lumbar region was prepped using chlorhexidineX-2. Under strict sterile technique using AP fluoroscopy the bilateral sacral ala were identified and using ipsilateral oblique fluoroscopy ,the junction of the transverse process and the superior articulating process of the L3, L4, L5 vertebra which corresponds to the fluoroscopy image of the eye of the Moose dog for the medial branches were identified. Subsequently, after local infiltration of skin with lidocaine 1% 0.2 mL at each level , a 25-gauge 3.5" Quincke-type needle was placed at the junction of the base of the transverse process and the superior articular process at the appropriate level as well as the sacral ala, and the needle was advanced until the periosteum contacted, needle placement confirmed with AP and oblique fluoroscopy, 0.2 mL of Isovue 200 per level was injected which revealed no vascular uptake and after negative aspiration, 0.5 mL of [lidocaine 4%] was injected at each level and the needle subsequently removed . At the end of the procedure and the needles were removed and a bandage applied after the skin was cleaned. The patient was taken to recovery room in stable condition and monitors in the recovery room for 20-30 minutes and discharged home in stable condition after discharge criteria met and patient will follow up in clinic in 2 weeks EBL: Minimal COMPLICATION: None.
[2019-10-17 10:28] VITALS: BP 175/88; PULSE 74; RESP 18
[2019-10-17 11:01] LABS: Glucose,Whole Blood 221 mg/dL (75-99)
== END ==
LOC: ORPAIN 07:29
PROVIDERS: ATTEND Anesthesiology
DX: M47.816 Spondylosis without myelopathy or radiculopathy, lumbar region (principal); M51.36 Other intervertebral disc degeneration, lumbar region; Z87.891 Personal history of nicotine dependence; Z79.4 Long term (current) use of insulin; Z79.82 Long term (current) use of aspirin; Z79.899 Other long term (current) drug therapy
CPT/HCPCS: 64493; 64494 ×2; 64495; J2250; Q9966; 99152; 99153

== ENCOUNTER → 2019-11-21 | Outpatient (CLI) | payer OTHER ==
[2019-11-21 12:07] VITALS: BP 180/76; PULSE 80; RESP 18
--- NOTE | 2019-11-21 12:54 | P.PAINPG ---
Subjective Progress Note Date: 11/21/19 This is a follow-up visit for this 64 years old male with a chronic history of severe neck pain and low back pain, done radiofrequency ablation of the medial branch cervical area , patient reported that his neck pain improved, and his complaining of low back pain recently with an MRI of the lumbar spine which showed patient had multilevel lumbar degenerative disc disease and lumbar spondylosis, few weeks ago we have done diagnostic medial branch block lumbar area and he had good pain relief for 2 days, but currently he is complaining of severe muscle spasm in the low back area and also in the lower extremity that's interfere with the quality of life, 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 -HEENT : nech : supple , no Lymphadenopathy , normal thyroid size - neurologic : Cranial nerve II to XII intact , no focal neurological deffecit . -psychatric : alert , oriented X 3 , appropriate affect , intact judgment and insight . -Lymphatic : no Lymphadenopathy . - musculoskeltal : Cervical Spine motor stregnth in the deltoid and biceps, normal right side , normal Left side motor stregnth biceps and the wrist extensors normal right side ,normal left side . motor stregnth in the triceps muscle . normal Right side , normal Left side deep tendon reflexes normal at the biceps , normal at Brachioradialis , normal at natty Lumber spine moter stegnth lower extremities ,thigh and legs 5/5 Right side , 5/5 Left side deep tendon reflexes : normal Knee Jerk , normal ankle Jerk lumber facet Loading Test =positive Right , positive Left Range of motion of the lumbar spine Flexion 30 degrees, extension 10 degrees strait leg raising test = negative bilaterally Fabere test= negative bilaterally. Assessment and Plan Plan: Assessment and plan= low back pain secondary to lumbar spondylosis and lumbar facet arthropathy, and lumbar degenerative disc disease Status post FIRST diagnostic medial branch block lumbar area L2,L3, L4 ,L5 , he had good relief for 2 days Description complaining of severe muscle spasm during the daytime patient could benefit from Zanaflex 4 mg 3 times a day Continue Mobic 7.5 mg twice a day when necessary Time with Patient: Less than 30 PQRS Measure Charge Sheet Measure #130: Documentation of Current Meds in Medical Chart: Patient's medications documented in chart Measure #226: Tobacco Use: Screen & Cessation Intervention: Pt not a tobacco user Measure #111: Pneumonia Vaccination: Pneumococcal vaccine administered or previously received Measure #47: Advance Care Plan: Advance care planning discussed & documented, pt chose/unable to give Measure #412: Opioid Treatment Agreement: No documentation of signed opioid treatment agreement Measure #408: Opioid Therapy Follow-up Evaluation: Patient had NO f/u eval minimum every 3 months during opioid therapy Measure #317: Preventitive Care & Scrn High Bld Press & F/U: Pre-hypertensive or hypertensive BP documented, pt will f/u with PCP Measure #128: Body Mass Index (BMI) Screening & Follow-up: BMI documented ABOVE normal parameters - f/u documented Measure #131: Pain Assessment & Follow-up: Pain positive & plan documented, Follow-up scheduled Measure #431: Unhealthy Alcohol Use Preventative Care & Scrn: Patient not identified as an unhealthy alcohol user PQRS Narrative: Smoking Status Former smoker Narcotic Agreement Date Signed 09/26/19 Blood Pressure 180/76 Pain Intensity [Bilateral 8 Lower Back] Scale Used Numeric (1 - 10) Hx Alcohol Use (MH) No: :as teen only" Home Medications: Ambulatory Orders Insulin Glargine [Lantus] 30 units SQ AC-BRKFST 08/25/16 amLODIPine BESYLATE [Norvasc] 10 mg PO DAILY 08/25/16 Acetaminophen [Tylenol Extra Strength] 500 - 1,000 mg PO DIRECTED PRN 09/21/19 Atorvastatin [Lipitor] 20 mg PO DAILY 09/21/19 Insulin Lispro [Admelog] 7 unit SQ AC-BRKFST 09/21/19 Insulin Lispro [Admelog] 9 unit SQ AC-LUNCH 09/21/19 Insulin Lispro [Admelog] 14 unit SQ AC-SUPPER 09/21/19 Irbesartan [Avapro] 75 mg PO DAILY 09/21/19 Carvedilol [Coreg] 12.5 mg PO BID 10/16/19 Meloxicam [Mobic] 7.5 mg PO BID 10/16/19 Controlled Substance Measures - Controlled Substance Measures Is patient prescribed a controlled substance at discharge?: No
== END | disposition home or self-care (01) ==
LOC: PNWHC3 11:47
PROVIDERS: ATTEND Specialist
DX: G89.29 Other chronic pain (principal); M51.36 Other intervertebral disc degeneration, lumbar region; M47.816 Spondylosis without myelopathy or radiculopathy, lumbar region; M46.96 Unspecified inflammatory spondylopathy, lumbar region; Z87.891 Personal history of nicotine dependence; Z98.890 Other specified postprocedural states; Z79.4 Long term (current) use of insulin; Z79.1 Long term (current) use of non-steroidal anti-inflammatories (NSAID); Z79.899 Other long term (current) drug therapy
CPT/HCPCS: 99211

== ENCOUNTER → 2019-11-30 | Day surgery (SDC) | payer OTHER ==
[2019-11-10 09:06] VITALS: BMI 28.8
[~2019-11-30] MED LIST changes: +ENALAPRILAT 1.25 MG/ML 1 ML VIAL IVP ONE; -IOPAMIDOL M200 10 ML VIAL ONE; -LIDOCAINE 1% 20 ML VIAL (10MG/ML) FOR IV START SQ ONE; -LIDOCAINE 4% (PF) 5 ML AMP ONE; +ROPIVACAINE 5MG/ML 20ML VIAL ONE; +fentaNYL (PF) 50 MCG/ML 2 ML AMP ONE
[2019-11-30 09:53] LABS: Glucose,Whole Blood 228 mg/dL (75-99)
[2019-11-30 09:58] VITALS: RESP 17; TEMP 98
--- NOTE | 2019-11-30 10:11 | P.GSHP ---
History of Present Illness H&P Date: 11/30/19 This is a 64 years old male with a history of chronic severe low back pain, who is diagnosed with lumbar spondylosis and lumbar facet arthropathy, and he is here today to have second diagnostic medial branch block lumbar area L2 ,L3 ,L4,L5 under fluoroscopy guidance Past Medical History Past Medical History: Diabetes Mellitus, Eye Disorder, Hyperlipidemia, Hypertension, Liver Disease, Myocardial Infarction ([place]), Osteoarthritis ([place]) Additional Past Medical History / Comment(s): Hx Hepatitis C, no tx. HX retina tear right eye - treated at [facility] July 2019 Last Myocardial Infarction Date:: unknown History of Any Multi-Drug Resistant Organisms: None Reported Past Surgical History: Heart Catheterization With Stent, Orthopedic Surgery Additional Past Surgical History / Comment(s): r thumb amputation, cardiac stent 2003. Cataract removal to bilateral eyes. rt eye Retinal tear proc. Pain proc Past Anesthesia/Blood Transfusion Reactions: No Reported Reaction Date of Last Stent Placement:: 2003 Past Psychological History: No Psychological Hx Reported Smoking Status: Former smoker Past Alcohol Use History: None Reported Additional Past Alcohol Use History / Comment(s): STARTED SMOKING AT AGE 18 quit smoking at age 24, smoked 1 PPD Past Drug Use History: None Reported Additional Drug Use History / Comment(s): . - Past Family History Mother Family Medical History: No Reported History Medications and Allergies Home Medications Medication Instructions Recorded Confirmed Type Insulin Glargine [Lantus] 30 units SQ AC-BRKFST 08/25/16 11/30/19 History amLODIPine BESYLATE [Norvasc] 10 mg PO QAM 08/25/16 11/30/19 History Acetaminophen [Tylenol Extra 500 - 1,000 mg PO DIRECTED PRN 09/21/19 11/30/19 History Strength] Atorvastatin [Lipitor] 20 mg PO DAILY 09/21/19 11/30/19 History Insulin Lispro [Admelog] 7 unit SQ AC-BRKFST 09/21/19 11/30/19 History Insulin Lispro [Admelog] 9 unit SQ AC-LUNCH 09/21/19 11/30/19 History Insulin Lispro [Admelog] 14 unit SQ AC-SUPPER 09/21/19 11/30/19 History Irbesartan [Avapro] 75 mg PO HS 09/21/19 11/30/19 History Carvedilol [Coreg] 12.5 mg PO BID 10/16/19 11/30/19 History Meloxicam [Mobic] 7.5 mg PO BID 10/16/19 11/30/19 History Allergies Allergy/AdvReac Type Severity Reaction Status Date / Time No Known Allergies Allergy Verified 11/30/19 09:41 Surgical - Exam Vital Signs Temp Pulse Resp BP Pulse Ox 98.0 F 80 17 201/99 98 11/30/19 09:40 11/30/19 09:40 11/30/19 09:40 11/30/19 09:40 11/30/19 09:40 -Constitutiona : Cooperative , not in acute distress . -HEENT : nech : supple , no Lymphadenopathy , normal thyroid size - neurologic : Cranial nerve II to XII intact , no focal neurological deffecit . -psychatric : alert , oriented X 3 , appropriate affect , intact judgment and insight . -Lymphatic : no Lymphadenopathy . - musculoskeltal : Cervical Spine motor stregnth in the deltoid and biceps, normal right side , normal Left side motor stregnth biceps and the wrist extensors normal right side ,normal left side . motor stregnth in the triceps muscle . normal Right side , normal Left side deep tendon reflexes normal at the biceps , normal at Brachioradialis , normal at natty Lumber spine moter stegnth lower extremities ,thigh and legs 5/5 Right side , 5/5 Left side deep tendon reflexes : normal Knee Jerk , normal ankle Jerk lumber facet Loading Test =positive Right , positive Left Range of motion of the lumbar spine Flexion 30 degrees, extension 10 degrees strait leg raising test = negative bila terally Fabere test= negative bilaterally. Results - Labs Abnormal Lab Results - Last 24 Hours (Table) 11/30/19 Range/Units 09:51 POC Glucose (mg/dL) 228 H (75-99) mg/dL Assessment and Plan Plan: Assessment and plan= lumbar spondylosis with lumbar facet arthropathy Patient here today to have second diagnostic medial branch block lumbar area L2,L3,L4,L5 Time with Patient: Less than 30
--- NOTE | 2019-11-30 10:50 | P.PCN ---
Date of Procedure: 11/30/19 Procedure(s) Performed: PREOPERATIVE DIAGNOSIS : 1- Lumbar spondylosis with Facet Arthropathy without myelopathy . POSTOPERATIVE DIAGNOSIS: 1- Lumbar spondylosis with Facet Arthropathy without myelopathy . PROCEDURE: Diagnostic bilateral L2 , L3 , L4 , and L5 medial branch block under fluoroscopy guidance(fluoroscopy images available in the radiology Department ) ( To target the facet joint between L3-4 , L4-5 , and L5-S1 ) ANESTHESIA:, moderate sedation with intravenous Versed 2 mg and Fentanyl 50 mcg. EBL: Minimal COMPLICATION: None. IV FLUIDS: 100 mL of normal saline. PROCEDURE INDICATION: Chronic low back pain secondary to Facet arthropathy unresponsive to conservative treatment. PROCEDURE DESCRIPTION: the patient was seen and identified in the preop holding area , risks and benefits and possible complications of the procedure and alternative were discussed with the patient, and the patient agreed to proceed with the procedure and signed the consent IV was started and vital signs monitored during the procedure and fluoroscopy was used to maximize the benefit and accuracy of the needle placement, and sedation was given to decrease patient anxiety, patient was taken to the procedure room and placed in prone position vital signs monitored in the back prepped with chlorhexidine X3 then under strict sterile technique using a right oblique fluoroscopy ,the junction of the transverse process and the superior articulating process of the right L2 , L3 , L4 , and L5 vertebra which corresponding to the fluoroscopy image of the eye of the Moose dog on the block side for the medial branches and subsequently , after local infiltration of skin and subcu tissuies with Ropivacaine 0.5 % , one mL at each level ,then 22-gauge Quincke-type needles , 4 needle was used , each one of them placed at the junction of the base of the transverse process and the superior articular process at the appropriate level, and the needle was advanced until the periosteum contacted, needle placement confirmed with AP oblique and lateral view and after appropriate needle placement confirmed, and after negative aspiration for heme and CSF and there was no paresthesia , Ropivacaine 0.5% half mL injected at each level after negative aspiration the needle subsequently removed and the same procedure repeated for the left side at left side at L2 , L3 , L4 and L5 levels. At the end of the procedure and the needles removed and a bandage applied after the skin was cleaned the cleaning solution patient taken to recovery room in stable condition and monitors in the recovery room for 20-30 minutes and discharged home in stable condition after discharge criteria met and patient will follow up with the pain clinic in 2-4 weeks
[2019-11-30 10:59] LABS: Glucose,Whole Blood 199 mg/dL (75-99)
[2019-11-30 11:11] VITALS: BP 145/77; PULSE 74
--- NOTE | 2019-11-30 11:47 | FL ---
EXAMINATION TYPE: FL guided pain mgmt statistic DATE OF EXAM: 11/30/2019 CLINICAL HISTORY: Low back pain. TECHNIQUE: Fluoroscopy. COMPARISON: None. FINDINGS: Fluoroscopic guidance was provided during pain relief procedure performed by Dr. Edouard . A total of 14 seconds of fluoroscopic time was utilized during the procedure and 4 spot images are acquired. Images acquired shows needle localization at multiple levels in the lumbar spine. IMPRESSION: As Above.
== END ==
LOC: ORPAIN 09:12
PROVIDERS: ATTEND Specialist
DX: G89.29 Other chronic pain (principal); M47.816 Spondylosis without myelopathy or radiculopathy, lumbar region; M51.36 Other intervertebral disc degeneration, lumbar region; E11.9 Type 2 diabetes mellitus without complications; E78.5 Hyperlipidemia, unspecified; I10 Essential (primary) hypertension; I25.2 Old myocardial infarction; Z87.891 Personal history of nicotine dependence; Z79.4 Long term (current) use of insulin; Z79.899 Other long term (current) drug therapy; Z79.1 Long term (current) use of non-steroidal anti-inflammatories (NSAID); Z86.69 Personal history of other diseases of the nervous system and sense organs; Z86.19 Personal history of other infectious and parasitic diseases; Z95.5 Presence of coronary angioplasty implant and graft; Z98.890 Other specified postprocedural states; Z89.011 Acquired absence of right thumb; Z98.42 Cataract extraction status, left eye; Z98.41 Cataract extraction status, right eye
CPT/HCPCS: 64493; 64494; 64495; J2250; J3010; J2795; 99152; 99153

== ENCOUNTER → 2020-02-05 | Outpatient (CLI) | payer OTHER ==
--- NOTE | 2020-02-05 08:43 | P.PAINPG ---
Subjective Progress Note Date: 02/05/20 THIS ENCOUNTER WAS PERFORMED A TELEMEDICINE VISIT VIA SECURE TWO-WAY VIDEO AND AUDIO TO MINIMIZE RISK AND TRANSMISSION OF COVID-19. This is a follow-up visit for this 64 year old male with a chronic history of severe neck pain and low back pain, managed with a combination of interventional pain procedures and medications, recently we have done diagnostic medial branch block lumbar area 1 and he had good pain relief for 2 days, however, at last visit, he was complaining of severe muscle spasms, he was started on Zanaflex. Unfortunately, we have not been able to perform second diagnostic medial branch block due to Coronavirus pandemic. He reports medications are helping control pain, denies s/e. Pain located in neck, radiating to b/l UE L>R; also low back pain with occasional L leg numbness. 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 Review of systems is negative for chest pain, shortness of breath, new onset weakness, numbness/tingling, abdominal pain, malaise, fever, night sweats, chills, homicidal or suicidal ideation, or bowel or bladder incontinence. Objective Physical exam: Constitutional: Healthy appearing, well developed, alert, in no acute distress Psychiatric: Judgement and insight intact, alert and oriented Mood and Affect: mood normal, affect appropriate Head and Face: Inspection: normocephalic atraumatic, extraocular movement intact Respiratory: Breathing non-labored nondyspneic Skin: Head and Neck: skin with no lesions or rash Neurologic: numbness in bilateral hands Assessment and Plan Plan: Assessment and plan= low back pain secondary to lumbar spondylosis and lumbar facet arthropathy, and lumbar degenerative disc disease Status post FIRST diagnostic medial branch block lumbar area L2,L3, L4 ,L5 , he had good relief for 2 days; will schedule second MBB at next available Continue Zanaflex 4 mg 3 times a day, prescription sent to pharmacy with 2 refills Couseled not to take mobic d/t NSAID relation with COVID. He expressed understanding PQRS Measure Charge Sheet PQRS Narrative: Smoking Status Former smoker Narcotic Agreement Date Signed 09/26/19 Hx Alcohol Use (MH) No: :as teen only" Home Medications: Ambulatory Orders Insulin Glargine [Lantus] 30 units SQ AC-BRKFST 08/25/16 amLODIPine BESYLATE [Norvasc] 10 mg PO QAM 08/25/16 Acetaminophen [Tylenol Extra Strength] 500 - 1,000 mg PO DIRECTED PRN 09/21/19 Atorvastatin [Lipitor] 20 mg PO DAILY 09/21/19 Insulin Lispro [Admelog] 7 unit SQ AC-BRKFST 09/21/19 Insulin Lispro [Admelog] 9 unit SQ AC-LUNCH 09/21/19 Insulin Lispro [Admelog] 14 unit SQ AC-SUPPER 09/21/19 Irbesartan [Avapro] 75 mg PO HS 09/21/19 Carvedilol [Coreg] 12.5 mg PO BID 10/16/19 Meloxicam [Mobic] 7.5 mg PO BID 10/16/19 tiZANidine [Zanaflex] 4 mg PO Q8HR PRN #90 tab 02/05/20 Controlled Substance Measures - Controlled Substance Measures Is patient prescribed a controlled substance at discharge?: No
== END | disposition home or self-care (01) ==
LOC: PNWHC3 06:48
PROVIDERS: ATTEND Anesthesiology
DX: Z53.9 Procedure and treatment not carried out, unspecified reason (principal)

== ENCOUNTER 2020-03-14 08:51 | Day surgery (SDC) | payer OTHER ==
[2020-03-13 10:24] VITALS: BMI 28.0
[~2020-03-14 08:51] MED LIST changes: -ENALAPRILAT 1.25 MG/ML 1 ML VIAL IVP ONE; -INSULIN ASPART (NovoLOG) 100 UNIT/ML VIAL SQ ONE; -IV FLUID CONTINUATION 1,000 ML IV ONE; -MIDAZOLAM 2 MG/2 ML VIAL ONE; -ROPIVACAINE 5MG/ML 20ML VIAL ONE; -fentaNYL (PF) 50 MCG/ML 2 ML AMP ONE
[2020-03-14 09:23] VITALS: BP 157/75; PULSE 73; RESP 16; TEMP 98.4
[2020-03-14] MEDS ORDERED: LIDOCAINE 1% (10MG/ML) FOR IV START INTRADERMA ONE (09:37)
[2020-03-14 09:47] LABS: Glucose,Whole Blood 359 mg/dL (75-99)
== END 2020-03-14 09:57 | disposition home or self-care (01) ==
LOC: ORPAIN 08:51
PROVIDERS: ATTEND Specialist
DX: M54.5 Low back pain (principal); Z53.8 Procedure and treatment not carried out for other reasons

== ENCOUNTER → 2020-03-27 | Outpatient (CLI) | payer OTHER ==
--- NOTE | 2020-03-27 09:21 | P.PAINPG ---
Subjective Progress Note Date: 03/27/20 This is a follow-up visit for this 64 years old male with a chronic history of severe neck pain and low back pain, done radiofrequency ablation of the medial branch cervical area , patient reported that his neck pain improved, and his complaining of low back pain recently patient had multilevel lumbar de generative disc disease and lumbar spondylosis, few weeks ago we have done diagnostic medial branch block lumbar area and he had good pain relief for 2 days, but currently he is complaining of severe muscle spasm in the low back area and also in the lower extremity that's interfere with the quality of life, 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 -HEENT : nech : supple , no Lymphadenopathy , normal thyroid size - neurologic : Cranial nerve II to XII intact , no focal neurological deffecit . -psychatric : alert , oriented X 3 , appropriate affect , intact judgment and insight . -Lymphatic : no Lymphadenopathy . - musculoskeltal : Cervical Spine motor stregnth in the deltoid and biceps, normal right side , normal Left side motor stregnth biceps and the wrist extensors normal right side ,normal left side . motor stregnth in the triceps muscle . normal Right side , normal Left side deep tendon reflexes normal at the biceps , normal at Brachioradialis , normal at natty Lumber spine moter stegnth lower extremities ,thigh and legs 5/5 Right side , 5/5 Left side Assessment and Plan Plan: Assessment and plan= low back pain secondary to lumbar spondylosis and lumbar facet arthropathy, and lumbar degenerative disc disease Patient get excellent relief after the diagnostic medial branch block lumbar area x2 done on 2 different locations Patient is a good candidate to have RFA of medial branch block lumbar area L2,L3, L4 ,L5 , bilateral prescription refill for Zanaflex 4 mg 3 times a day Continue Mobic 7.5 mg twice a day when necessary Time with Patient: Less than 30 PQRS Measure Charge Sheet Measure #130: Documentation of Current Meds in Medical Chart: Patient's medications documented in chart Measure #226: Tobacco Use: Screen & Cessation Intervention: Pt not a tobacco us er Measure #111: Pneumonia Vaccination: Pneumococcal vaccine administered or previously received Measure #47: Advance Care Plan: Advance care planning discussed & documented, pt chose/unable to give Measure #412: Opioid Treatment Agreement: No documentation of signed opioid treatment agreement Measure #408: Opioid Therapy Follow-up Evaluation: Patient had NO f/u eval minimum every 3 months during opioid therapy Measure #317: Preventitive Care & Scrn High Bld Press & F/U: Pre-hypertensive or hypertensive BP documented, pt will f/u with PCP Measure #128: Body Mass Index (BMI) Screening & Follow-up: BMI documented ABOVE normal parameters - f/u documented Measure #131: Pain Assessment & Follow-up: Pain positive & plan documented, Follow-up scheduled Measure #431: Unhealthy Alcohol Use Preventative Care & Scrn: Patient not identified as an unhealthy alcohol user PQRS Narrative: Smoking Status Former smoker Narcotic Agreement Date Signed 09/26/19 Blood Pressure 168/84 Pain Intensity [Generalized] 8 Scale Used Numeric (1 - 10) Hx Alcohol Use (MH) No: :as teen only" Home Medications: Ambulatory Orders Irbesartan [Avapro] 75 mg PO DAILY 09/21/19 tiZANidine [Zanaflex] 4 mg PO Q8HR PRN #90 tab 02/05/20 Atorvastatin [Lipitor] 20 mg PO HS 03/13/20 Carvedilol [Coreg] 6.25 mg PO BID 03/13/20 INSULIN LISPRO (humaLOG) [humaLOG] 7 units SQ AC-BRKFST 03/13/20 INSULIN LISPRO (humaLOG) [humaLOG] 9 units SQ AC-LUNCH 03/13/20 INSULIN LISPRO (humaLOG) [humaLOG] 14 units SQ AC-SUPPER 03/13/20 Insulin Glargine,Hum.rec.anlog [Basaglar Kwikpen U-100] 30 unit SQ QAM 03/13/20 amLODIPine [Norvasc] 10 mg PO DAILY 03/13/20 Meloxicam [Mobic] 7.5 mg PO BID PRN 03/27/20 Controlled Substance Measures - Controlled Substance Measures Is patient prescribed a controlled substance at discharge?: No
[2020-03-29 06:12] VITALS: BP 168/84; PULSE 89; RESP 16
== END | disposition home or self-care (01) ==
LOC: PNWHC3 08:45
PROVIDERS: ATTEND Specialist
DX: M51.36 Other intervertebral disc degeneration, lumbar region (principal); M47.816 Spondylosis without myelopathy or radiculopathy, lumbar region; Z87.891 Personal history of nicotine dependence; Z79.1 Long term (current) use of non-steroidal anti-inflammatories (NSAID); Z79.4 Long term (current) use of insulin; Z79.899 Other long term (current) drug therapy
CPT/HCPCS: 99211

== ENCOUNTER → 2020-04-24 | Outpatient (CLI) | payer OTHER ==
[2020-04-24 08:28] VITALS: PULSE 77; RESP 16
[2020-04-24 08:35] VITALS: BP 182/91
--- NOTE | 2020-04-24 08:43 | P.PAINPG ---
Subjective his is a follow-up visit for this 64 years old male with a chronic history of severe neck pain and low back pain, done radiofrequency ablation of the medial branch cervical area , patient reported that his neck pain improved, and his complaining of low back pain recently patient had multilevel lumbar degenerative disc disease and lumbar spondylosis, we performed L2,L3,L4,L5 MBB block for him in 09/2019 and 11/2019 and he had excellent relief. We felt he is a good candidate for RFA at this time. He currently says he feels pretty good his back pain is currently a 5 out of 10 mostly on the left side with occasional radiation down the anterior thigh. He says he has poorly controlled diabetes and high blood pressure and will like to get those under control before he proceeds with this procedure. We told him he can call us at any point to schedule the procedure feels like she is ready and that his diabetes is under better control. he denies any motor or sensory deficit, he denies any fever or night sweats, and he is scheduled to have RFA of the medial branch lumbar area within the next week Objective - Exam -Constitutional : Cooperative , not in acute distress . -HEENT : neck : supple , no Lymphadenopathy , normal thyroid size - neurologic : Cranial nerve II to XII intact , no focal neurological deffecit . -psychatric : alert , oriented X 3 , appropriate affect , intact judgment and insight . -Lymphatic : no Lymphadenopathy . - musculoskeltal : Cervical Spine motor strength in the deltoid and biceps, normal right side , normal Left side motor strength biceps and the wrist extensors normal right side ,normal left side . motor strength in the triceps muscle . normal Right side , normal Left side deep tendon reflexes normal at the biceps , normal at Brachioradialis , normal at natty Lumber spine motor strength lower extremities ,thigh and legs 5/5 Right side , 5/5 Left side Assessment and Plan Plan: Assessment and plan= low back pain secondary to lumbar spondylosis and lumbar facet arthropathy, and lumbar degenerative disc disease Patient get excellent relief after the diagnostic medial branch block lumbar area x2 done on 2 different locations Patient is a good candidate to have RFA of medial branch block lumbar area L2,L3, L4 ,L5 , bilateral but like to hold off the procedure until he gets his diabetes under control. His blood sugar was 237 today. prescription refill for Zanaflex 4 mg 3 times a day and mobic 7.5 mg BID Time with Patient: Less than 30 Smoking Status Former smoker Narcotic Agreement Date Signed 09/26/19 Blood Pressure 168/84 Pain Intensity [Generalized] 8 Scale Used Numeric (1 - 10) Hx Alcohol Use (MH) No: :as teen only" Controlled Substance Measures - Controlled Substance Measures Is patient prescribed a controlled substance at discharge?: No PQRS Measure Charge Sheet Measure #226: Tobacco Use: Screen & Cessation Intervention: Pt not a tobacco user Measure #111: Pneumonia Vaccination: Pneumococcal vaccine administered or previously received Measure #47: Advance Care Plan: Advance care planning discussed & documented, pt chose/unable to give Measure #412: Opioid Treatment Agreement: Documented signed opioid trtmnt agreemnt min once during opioid trtmnt Measure #408: Opioid Therapy Follow-up Evaluation: Patient had NO f/u eval minimum every 3 months during opioid therapy Measure #131: Pain Assessment & Follow-up: Pain positive & plan documented Measure #431: Unhealthy Alcohol Use Preventative Care & Scrn: Patient not identified as an unhealthy alcohol user PQRS Narrative: Smoking Status Former smoker Narcotic Agreement Date Signed 09/26/19 Hx Alcohol Use () No: :as teen only" Home Medications: Ambulatory Orders Irbesartan [Avapro] 75 mg PO DAILY 09/21/19 Atorvastatin [Lipitor] 20 mg PO HS 03/13/20 INSULIN LISPRO (humaLOG) [humaLOG] 7 units SQ AC-BRKFST 03/13/20 INSULIN LISPRO (humaLOG) [humaLOG] 9 units SQ AC-LUNCH 03/13/20 INSULIN LISPRO (humaLOG) [humaLOG] 14 units SQ AC-SUPPER 03/13/20 Insulin Glargine,Hum.rec.anlog [Basaglar Kwikpen U-100] 30 unit SQ QAM 03/13/20 amLODIPine [Norvasc] 10 mg PO DAILY 03/13/20 carvediloL [Coreg] 6.25 mg PO BID 03/13/20 Meloxicam [Mobic] 7.5 mg PO BID PRN #60 tab 04/24/20 tiZANidine [Zanaflex] 4 mg PO Q8HR PRN #90 tab 04/24/20 Controlled Substance Measures - Controlled Substance Measures Is patient prescribed a controlled substance at discharge?: No
== END | disposition home or self-care (01) ==
LOC: PNWHC3 07:50
PROVIDERS: ATTEND Anesthesiology
DX: M47.816 Spondylosis without myelopathy or radiculopathy, lumbar region (principal); M51.36 Other intervertebral disc degeneration, lumbar region; M46.96 Unspecified inflammatory spondylopathy, lumbar region; Z87.891 Personal history of nicotine dependence; Z79.891 Long term (current) use of opiate analgesic; Z79.899 Other long term (current) drug therapy; Z79.4 Long term (current) use of insulin
CPT/HCPCS: 99211

== ENCOUNTER → 2023-03-29 | Outpatient (CLI) | payer OTHER ==
[2023-03-29 09:24] VITALS: BP 157/84; PULSE 95; RESP 16; TEMP 98.3
--- NOTE | 2023-03-29 14:27 | P.PAINPG ---
PQRS Measure Charge Sheet Comment: HISTORY OF PRESENT ILLNESS: 67 yr old male as a referral from Bianca AVILEZ presents today w severe and chronic LBP secondary to DDD, spondylosis and facet arthropathy without myelopathy for evaluation. Pt states pain level is provoked at 8/10 in intensity, constant, localized in the lower lumbar spine, sharp in character w shooting pain towards the BLEs. Pain is provoked by standing/ climbing stairs for 15 min or more. Pain is alleviated by medications (Ibu, Mobic), topical, physician guided home stretches 3 times weekly x 5 yrs, injections in the past, laying supine and rest. Oswestry pain score at 21. PMH: OA, DM II, Eye Disorder, Hyperlipidemia, HTN, Liver Disease, NM, OA, Hx of Hep C PSH: L RFA C3-C4/C4-C5/ C5-C6, BL RFA L3-L4/ L4-L5/ L5-S1, Heart Catheterization With Stent (2003), R Thumb Amputation, BL Cataract Resection, R Retinal Detachment SH: 6 pack/ yr tobacco user, Quit at age 24, No ETOH abuse, No illicit drug use FH: Denies All: See list Meds: See list REVIEW OF ORGAN SYSTEMS: CONSTITUTIONAL: No fevers or chills. No recent weight loss. NEUROLOGICAL: + numbness and tingling along the distal extremities. No seizure disorders or headaches. MUSCULOSKELETAL: + pain PSYCHIATRIC: Denies current depression or suicidal thoughts. Physical Examinations : Constitutional : Cooperative , not in acute distress . Neurologic : Cranial nerve II to XII intact. No focal neurological deficits. Psychiatric : alert & oriented x 3. Matching mood & appropriate affect. Judgment & insight intact. Musculoskeletal : Cervical Spine Motor strength in the deltoid and biceps: Normal right side. Normal Left side Motor strength biceps and the wrist extensors: Normal right side . Normal left side Motor strength in the triceps muscle: Normal right side. Normal left side Deep tendon reflexes: Normal at the biceps. Normal at Brachioradialis. Normal at triceps Vertebral body tenderness to deep palpation over Cervical facet loading test: positive bilaterally Spurling test: positive bilaterally Neck distraction test: positive bilaterally Hong sign: positive bilaterally Lumbar spine Motor strength lower extremities ,thigh and legs 5/5 Right side , 5/5 Left side Deep tendon reflexes : Normal Knee Jerk. Normal Ankle Jerk Vertebral body tenderness over Guerrero Test positive Lumbar facet Loading Test: positive Right < positive Left over BL L4-L5, L5-S1 Range of motion of the lumbar spine Flexion 30 degrees, extension 10 degrees Straight Leg Raise test: Left/ Right positive at degree Teodora test: positive right / positive left. Severe tenderness over the Sacroiliac joint on the Right / Left sides Gaenslen test: positive bilaterally Seated flexion test: positive bilaterally. Sacral spine : Severe tenderness over the Sacroiliac joint: right side / left side Range of motion: Flexion of the lumbar spine <60 degrees Range of motion: Extension of the lumbar spine <20 degrees Gaenslen's Test positive David's Test positive Teodora test: positive right side / left side Thigh Thrust Test Sacral Thrust Test Imaging: Lumbar MRI from 2019 reviewed Assessment/ Plan : Lumbar DDD Recommendation of x ray of the lumbar spine re: M51.36. Risks, benefits of procedure discussed and patient verbalized understanding. Admits to aspirin or anti- coagulant use or medical history of diabetes. Protocol for discontinuation/ continuation of medications sherice procedure discussed. Minimal anesthesia provided, if clinically indicated, consisting of Versed and Fentanyl. All questions answered. I have spent greater than 30 minutes on patient care today. Dr Edouard was available by phone for the evaluation of this patient. The time was used to review the medical records including relevant urine studies and Prescription history (MAPs), review of the available imaging, evaluation and examination of the patient, coordination of care with the medical staff and if applicable referring physicians, as well as creation of the medical record PQRS Narrative: Smoking Status Former smoker Narcotic Agreement Date Signed 09/26/19 Hx Alcohol Use (MH) No: :as teen only" Home Medications: Ambulatory Orders Irbesartan [Avapro] 75 mg PO DAILY 09/21/19 Atorvastatin [Lipitor] 20 mg PO HS 03/13/20 INSULIN LISPRO (humaLOG) [humaLOG] 7 units SQ AC-BRKFST 03/13/20 INSULIN LISPRO (humaLOG) [humaLOG] 9 units SQ AC-LUNCH 03/13/20 INSULIN LISPRO (humaLOG) [humaLOG] 14 units SQ AC-SUPPER 03/13/20 Insulin Glargine,Hum.rec.anlog [Basaglar Kwikpen U-100] 30 unit SQ QAM 03/13/20 amLODIPine [Norvasc] 10 mg PO DAILY 03/13/20 carvediloL [Coreg] 6.25 mg PO BID 03/13/20 Meloxicam [Mobic] 7.5 mg PO BID PRN #60 tab 04/24/20 tiZANidine [Zanaflex] 4 mg PO Q8HR PRN #90 tab 04/24/20 Controlled Substance Measures - Controlled Substance Measures Is patient prescribed a controlled substance at discharge?: No
== END ==
LOC: PNWHC3 07:45
PROVIDERS: ATTEND Specialist
DX: M51.37 Other intervertebral disc degeneration, lumbosacral region (principal); M47.817 Spondylosis without myelopathy or radiculopathy, lumbosacral region; G89.29 Other chronic pain; M19.90 Unspecified osteoarthritis, unspecified site; E11.9 Type 2 diabetes mellitus without complications; E78.5 Hyperlipidemia, unspecified; I10 Essential (primary) hypertension; I25.2 Old myocardial infarction; B18.2 Chronic viral hepatitis C; Z79.4 Long term (current) use of insulin; Z79.82 Long term (current) use of aspirin; Z87.891 Personal history of nicotine dependence
CPT/HCPCS: 99211

== ENCOUNTER → 2023-04-26 | Outpatient (CLI) | payer OTHER ==
--- NOTE | 2023-04-28 00:06 | MR ---
EXAMINATION TYPE: MR lumbar spine wo con DATE OF EXAM: 04/27/2023 5:34 AM COMPARISON: 10/14/2018. CLINICAL INDICATION: Male, 67 years old with history of M51.36; PHH, Low back pain. TECHNIQUE: Multi planar, multi sequence imaging was performed utilizing: T1-weighted, T2-weighted, a nd turbo inversion recovery imaging of the lumbar spine. IV Contrast: None. FINDINGS: Alignment: The lumbar vertebral bodies have preserved heights with grade 1 anterolisthesis of L4 on L 5. Cord: The conus medullaris and the distal spinal cord appear unremarkable with regards to their signa l intensity and morphology. Bones/Discs: Multilevel degeneration changes throughout the spine with findings worse at the superior endplate of L3. Suspected limbus vertebrae of the L5 superior endplate anteriorly findings similar t o prior. T12-L1: No evidence of significant spinal canal stenosis or neural foraminal stenosis. L1-L2: No evidence of significant spinal canal stenosis or neural foraminal stenosis. L2-L3: No evidence of significant spinal canal stenosis or neural foraminal stenosis. L3-L4: Left foraminal disc protrusion with moderate to severe left neural foraminal stenosis. The rig ht neural foramen is mildly narrowed spinal canal is patent. L4-L5: Grade 1 anterolisthesis. Disc bulge and facet joint arthropathy result in severe spinal canal and large severe bilateral neural foraminal stenosis. L5-S1: The disc is rounded posterior morphology without significant spinal canal stenosis. Facet join t arthropathy with mild to moderate bilateral neural foraminal stenosis. No significant spinal canal or neural foraminal stenosis in the remainder of the visualized levels. Other findings: None. IMPRESSION: 1. Disc degeneration changes worse at L4-L5 with severe spinal canal and severe bilateral neural for aminal stenosis. This is mildly progressed from 2019. The spinal canal and is similar regarding the n eural foraminal stenosis. 2. L3-L4 Left foraminal disc protrusion with moderate to severe left neural foraminal stenosis. The right neural foramen is mildly narrowed spinal canal is patent. 3. Grade 1 anterolisthesis of L3-4 L5 also present.
== END | disposition home or self-care (01) ==
LOC: RADMRIMAIN 21:30
PROVIDERS: ATTEND Specialist
DX: M51.36 Other intervertebral disc degeneration, lumbar region (principal); M51.26 Other intervertebral disc displacement, lumbar region; M48.061 Spinal stenosis, lumbar region without neurogenic claudication; M43.16 Spondylolisthesis, lumbar region; M99.73 Connective tissue and disc stenosis of intervertebral foramina of lumbar region
CPT/HCPCS: 72148

== ENCOUNTER → 2023-05-26 | Outpatient (CLI) | payer OTHER ==
[2023-05-26 08:48] VITALS: BP 170/76; PULSE 82; RESP 15; TEMP 97.2
--- NOTE | 2023-05-26 13:17 | P.PAINPG ---
PQRS Measure Charge Sheet Comment: HISTORY OF PRESENT ILLNESS: 67 yr old male presents today w severe and chronic LBP secondary to DDD, spondylosis and facet arthropathy without myelopathy for evaluation. Pt states pain level is provoked at 8/10 in intensity, constant, localized in the lower lumbar spine, sharp in character w shooting pain towards the BLEs. Pain is provoked by standing/ climbing stairs for 15 min or more. Pain is alleviated by medications, topical, physician guided home stretches 3 times weekly x 5 yrs, injections in the past, laying supine and rest. Oswestry pain score at 21. Interventional procedures include DENIES Medications include Mobic, Ibu, Tyl, Aleve REVIEW OF ORGAN SYSTEMS: CONSTITUTIONAL: No fevers or chills. No recent weight loss. NEUROLOGICAL: + numbness and tingling along the distal extremities. No seizure disorders or headaches. MUSCULOSKELETAL: + pain PSYCHIATRIC: Denies current depression or suicidal thoughts. Physical Examinations : Constitutional : Cooperative , not in acute distress . Neurologic : Cranial nerve II to XII intact. No focal neurological deficits. Psychiatric : alert & oriented x 3. Matching mood & appropriate affect. Judgment & insight intact. Musculoskeletal : Cervical Spine Motor strength in the deltoid and biceps: Normal right side. Normal Left side Motor strength biceps and the wrist extensors: Normal right side . Normal left side Motor strength in the triceps muscle: Normal right side. Normal left side Deep tendon reflexes: Normal at the biceps. Normal at Brachioradialis. Normal at triceps Vertebral body tenderness to deep palpation over Cervical facet loading test: positive bilaterally Spurling test: positive bilaterally Neck distraction test: positive bilaterally Hong sign: positive bilaterally Lumbar spine Motor strength lower extremities ,thigh and legs 5/5 Right side , 5/5 Left side Deep tendon reflexes : Normal Knee Jerk. Normal Ankle Jerk Vertebral body tenderness over L4 Guerrero Test positive Lumbar facet Loading Test: positive Right < positive Left Range of motion of the lumbar spine Flexion 30 degrees, extension 10 degrees Straight Leg Raise test: Left/ Right positive at 35 degrees Teodora test: positive right / positive left. Severe tenderness over the Sacroiliac joint on the Right / Left sides Gaenslen test: positive bilaterally Seated flexion test: positive bilaterally. Sacral spine : Severe tenderness over the Sacroiliac joint: right side / left side Range of motion: Flexion of the lumbar spine <60 degrees Range of motion: Extension of the lumbar spine <20 degrees Gaenslen's Test positive David's Test positive Teodora test: positive right side / left side Thigh Thrust Test Sacral Thrust Test Imaging: Lumbar MRI from 04/27/23 reviewed Assessment/ Plan : Lumbar DDD Recommendation of YVONNE L4-L5. May need a series of injections for optimal pain relief. Risks, benefits of procedure discussed and patient verbalized understanding. Admits to aspirin or anti- coagulant use or medical history of diabetes. Protocol for discontinuation/ continuation of medications sherice p rocedure discussed. Minimal anesthesia provided, if clinically indicated, consisting of Versed and Fentanyl. All questions answered. I have spent greater than 30 minutes on patient care today. Dr Edouard was available by phone for the evaluation of this patient. The time was used to review the medical records including relevant urine studies and Prescription history (MAPs), review of the available imaging, evaluation and examination of the patient, coordination of care with the medical staff and if applicable referring physicians, as well as creation of the medical record PQRS Narrative: Smoking Status Former smoker Narcotic Agreement Date Signed 09/26/19 Hx Alcohol Use (MH) No: :as teen only" Home Medications: Ambulatory Orders INSULIN LISPRO (humaLOG) [humaLOG] 7 units SQ AC-BRKFST 03/13/20 INSULIN LISPRO (humaLOG) [humaLOG] 9 units SQ AC-LUNCH 03/13/20 INSULIN LISPRO (humaLOG) [humaLOG] 14 units SQ AC-SUPPER 03/13/20 Insulin Glargine,Hum.rec.anlog [Basaglar Kwikpen U-100] 30 unit SQ BID-W/MEALS 03/13/20 amLODIPine [Norvasc] 10 mg PO DAILY 03/13/20 carvediloL [Coreg] 6.25 mg PO BID 03/13/20 Meloxicam [Mobic] 7.5 mg PO BID PRN #60 tab 04/24/20 Aspirin [[place] Aspirin EC] 81 mg PO DAILY 03/29/23 Cyclobenzaprine [Flexeril] 1 tablet PO DAILY 03/29/23 Rosuvastatin [Crestor] 20 mg PO DAILY 03/29/23 Spironolactone [Aldactone] 50 mg PO DAILY 03/29/23 Valsartan [Diovan] 320 mg PO DAILY 03/29/23 Controlled Substance Measures - Controlled Substance Measures Is patient prescribed a controlled substance at discharge?: No
== END ==
LOC: PNWHC3 08:00
PROVIDERS: ATTEND Specialist
DX: M51.36 Other intervertebral disc degeneration, lumbar region (principal); Z87.891 Personal history of nicotine dependence; Z79.82 Long term (current) use of aspirin
CPT/HCPCS: 99211

== ENCOUNTER → 2023-06-30 | Outpatient (CLI) | payer OTHER ==
[2023-06-30 08:24] VITALS: BP 143/80; PULSE 75; RESP 15; TEMP 98.2
--- NOTE | 2023-06-30 14:42 | P.PAINPG ---
PQRS Measure Charge Sheet Comment: HISTORY OF PRESENT ILLNESS: A 67 yr old male presents today w severe and chronic LBP secondary to DDD, spondylosis and facet arthropathy without myelopathy for evaluation s/p YVONNE L4- L5 #1. Pt states he experienced 80% pain relief x 3 wks s/p procedure. Pt states pain level is provoked at 8/10 in intensity, constant, localized in the lower lumbar spine, sharp in character w shooting pain towards the BLEs. Pain is provoked by standing/ climbing stairs for 15 min or more. Pain is alleviated by medications, topical, physician guided home stretches 3 times weekly x 5 yrs, injections in the past, laying supine and rest. Interventional procedures include YVONNE L4-L5 x1 Medications include Mobic, Ibu, Tyl, Aleve REVIEW OF ORGAN SYSTEMS: CONSTITUTIONAL: No fevers or chills. No recent weight loss. NEUROLOGICAL: + numbness and tingling along the distal extremities. No seizure disorders or headaches. MUSCULOSKELETAL: + pain PSYCHIATRIC: Denies current depression or suicidal thoughts. Physical Examinations : Constitutional : Cooperative , not in acute distress . Neurologic : Cranial nerve II to XII intact. No focal neurological deficits. Psychiatric : alert & oriented x 3. Matching mood & appropriate affect. Judgment & insight intact. Musculoskeletal : Cervical Spine Motor strength in the deltoid and biceps: Normal right side. Normal Left side Motor strength biceps and the wrist extensors: Normal right side . Normal left side Motor strength in the triceps muscle: Normal right side. Normal left side Deep tendon reflexes: Normal at the biceps. Normal at Brachioradialis. Normal at triceps Vertebral body tenderness to deep palpation over Cervical facet loading test: positive bilaterally Spurling test: positive bilaterally Neck distraction test: positive bilaterally Hong sign: positive bilaterally Lumbar spine Motor strength lower extremities ,thigh and legs 5/5 Right side , 5/5 Left side Deep tendon reflexes : Normal Knee Jerk. Normal Ankle Jerk Vertebral body tenderness over L4 Guerrero Test positive Lumbar facet Loading Test: positive Right < positive Left Range of motion of the lumbar spine Flexion 30 degrees, extension 10 degrees Straight Leg Raise test: Left/ Right positive at 35 degrees Teodora test: positive right / positive left. Severe tenderness over the Sacroiliac joint on the Right / Left sides Gaenslen test: positive bilaterally Seated flexion test: positive bilaterally. Sacral spine : Severe tenderness over the Sacroiliac joint: right side / left side Range of motion: Flexion of the lumbar spine <60 degrees Range of motion: Extension of the lumbar spine <20 degrees Gaenslen's Test positive David's Test positive Teodora test: positive right side / left side Thigh Thrust Test Sacral Thrust Test Imaging: Lumbar MRI from 04/27/23 reviewed Assessment/ Plan : Lumbar DDD Will manage residual pain and may RTC on an as needed basis. All questions answered. I have spent greater than 30 minutes on patient care today. Dr Edouard was available by phone for the evaluation of this patient. The time was used to r eview the medical records including relevant urine studies and Prescription history (MAPs), review of the available imaging, evaluation and examination of the patient, coordination of care with the medical staff and if applicable referring physicians, as well as creation of the medical record - Pain Location Bilateral Lower Back Non-Pharmacological Interventions: Inactivity, Position/Reposition, Relaxation Technique, Sitting Pharmacological Interventions: Epidural, Scheduled Medication PQRS Narrative: Smoking Status Former smoker Narcotic Agreement Date Signed 09/26/19 Hx Alcohol Use (MH) No: :as teen only" Home Medications: Ambulatory Orders INSULIN LISPRO (humaLOG) [humaLOG] 7 units SQ AC-BRKFST 03/13/20 INSULIN LISPRO (humaLOG) [humaLOG] 9 units SQ AC-LUNCH 03/13/20 INSULIN LISPRO (humaLOG) [humaLOG] 14 units SQ AC-SUPPER 03/13/20 Insulin Glargine,Hum.rec.anlog [Basaglar Kwikpen U-100] 30 unit SQ BID-W/MEALS 03/13/20 amLODIPine [Norvasc] 10 mg PO DAILY 03/13/20 carvediloL [Coreg] 6.25 mg PO BID 03/13/20 Meloxicam [Mobic] 7.5 mg PO BID PRN #60 tab 04/24/20 Aspirin [[place] Aspirin EC] 81 mg PO DAILY 03/29/23 Cyclobenzaprine [Flexeril] 1 tablet PO DAILY 03/29/23 Rosuvastatin [Crestor] 20 mg PO DAILY 03/29/23 Spironolactone [Aldactone] 50 mg PO DAILY 03/29/23 Valsartan [Diovan] 320 mg PO DAILY 03/29/23 Controlled Substance Measures - Controlled Substance Measures Is patient prescribed a controlled substance at discharge?: No
== END ==
LOC: PNWHC3 07:48
PROVIDERS: ATTEND Specialist
DX: M51.36 Other intervertebral disc degeneration, lumbar region (principal); Z87.891 Personal history of nicotine dependence; Z79.82 Long term (current) use of aspirin
CPT/HCPCS: 99211